=== PATIENT | female | born 1965 | race Caucasian/White ===

== ENCOUNTER 2021-10-17 07:59 | Outpatient (CLI) | payer BC, SELFPAY ==
--- OUTSIDE RECORDS SUMMARY | 2021-09-28 10:36 | XMS_ITS | Continuity of Care Document ---
:1965 Author Allergies, Adverse Reactions, Alerts Allergen Type Severity Reaction Last Updated Verified Status No Known Drug Allergy Unknown December Yes Active Allergy 2020 Social History Smoking Status Status Start Date End Date Date of Observat ion Never smoked tobacco December 062020 (finding) 11:01am Observation Status Observation Response Date of Response History provided by Patient November 29, 2020 9: 44am Where do you live? Own home/apt November 29, 2020 9: 44am With whom do you live? Spouse November 29, 2020 9:44am If YES, describe Babysit grandchildren November 29, 2020 9:44am Additional Data Assigned Sex Female Problems Active Problems Medical Problem Onset Date Status Acquired hypothyroidism January 09, 2016 Active Papillary thyroid carcinoma January 09, 2016 Resolved Mixed hyperlipidemia Active History of abnormal cervical Pap July 09, 2014 Resolve d smear Fibromyalgia Active Diffuse cystic mastopathy Active Anemia Active Uterine fibroid Active History of endometrial biopsy Active Dry skin Active Scalp pruritus Active Encounter for screening laboratory Activ e testing for COVID-19 virus Menorrhagia Active History of thyroidectomy January 09, 2016 Resolved History of breast surgery Resolved Status post cervical polyp removal Activ e Status post laparoscopic Active hysterectomy Medications Medication Status Dose Units Route Directions Qty Days Start End Ins tructions Date Date Docusate Active 100 MG PO Twice A Day 100 November Sodium as needed , (Colace) 100 2020 Mg CAP 5:13pm Ibuprofen Active 600 MG PO Every 6 30 [place] Hours as 24, needed 2020 5:13pm Levothyroxine Active 112 MCG PO Daily 30 Sodium Metronidazole Active 500 MG PO Twice A Day 14 7 Septemb (Flagyl) 500 er Mg TAB 2020 11:32am Triamcinolone Active 1 KIRT TOP Twice A Day 15 Septemb Acetonide er (Triamcinolon Acetonide 2020 (Cream)) 0.1 9:49am % CRE Amoxicillin/C Discontin 1 TAB PO Every 12 14 7 May yehuda take with lavulanate ued Hours r , food Potassium 2018 12, (Amoxicillin 10:11am 2020 & Pot 2:46pm Clavulanate) 875 Mg/125 Mg TAB Cetirizine Discontin 10 MG PO Daily 100 Septem Hcl ued geno 2020 9:17am Diphtheria/Te Discontin 0.5 ML IM Once November tanus/Acell ued , Pertussis 2020 2020 (Adacel) 0.5 10:18am 10:20a Ml INJ m Ferrous Discontin 324 MG PO Daily November Gluconate ued 2020 5:14pm Levothyroxine Discontin 125 MCG PO Daily July t sasha one tab Sodium ued , daily 6 days 2018 12, of the week 9:06am 2020 and 04/08 tab 2:51pm day 7 Levothyroxine Discontin 125 MCG PO Daily July Sodium ued 2018 9:06am Liothyronine Discontin 5 MCG OR Daily JulyOctober 06 t ablets Sodium ued , , daily 2018 2020 9:06am 11:00a m Liothyronine Discontin 5 MCG OR Twice A Day 60 Jul il Sodium ued 2018 9:06am Medroxyproges Discontin 10 MG PO Daily October T sasha 1 tablet terone ued , PO QD-TID to Acetate 2020 2020 prevent heav y 1:27pm 2:50pm vaginal bleeding Oxycodone Hcl Discontin 5-10 MG PO Every November Septe m ued Hours as needed 2020, 5:14pm 2020 9:17am Zoster Discontin 50 MCG IM Once Vaccine ued r , er Recombinant 2018 10, Adj 4:38pm 2018 (Shingrix) 50 4:40pm Mcg/0.5 Ml INJ Zoster Discontin 50 MCG IM Once November Vaccine ued , , Recombinant 2018 2018 Adj 8:42am 8:43am (Shingrix) 50 Mcg/0.5 Ml INJ Immunizations Immunization Event Date Not Given Dose Computer Technologist Lot Vac cine Reason Number Number Informatio n Statement (VIS) Deta il Hepatitis A February 05 Adult 2011 Hepatitis A December 07 Adult 2012 Hepatitis B November 15 Adult 1999 Hepatitis B December 07 Adult 1999 Hepatitis B February 07 Adult 2011 Influenza February 052011 Shingrix December 02, GSK CONSUM 454S2 2018 Shingrix February 11, GLAXO SK 454S2 2018 Tdap February 05 (adolescent/adul 2009 t) Tdap November 16 SANOFI (adolescent/adul 2020 t) Typhoid February 052011 Advance Directives Advance Directive Response Recorded Date/Time Has patient completed a No December 18, 2020 11:01am Health Care Directive? Insurance Providers Guarantor Abimbola Christie Address [address] [facility] [address] Contact Info. Home Phone: Payer Policy Id Coverage Id Subscriber's Subscriber Id Effective E xpiration Name Date Date Medica2 [id number] Pratik [id number] Abimbola Mcmullen Plan of Treatment Future Tests Future scheduled test information is unavailable Pending Tests Pending diagnostic test information is unavailable Future Visits Future appointment information is unavailable Referrals to Other Providers Referral information is unavailable Future Procedures Procedure Name Scheduled Date APRIL Bilat Mammo Scrn APRIL Bilat Mammo Scrn Future Medications Future medication information is unavailable Patient Instructions Laparoscopic Hysterectomy (DC)
--- NOTE | 2021-10-17 08:15 | CRLHL7_ITS ---
For Patients: As a result of the Century Cures Act, medical imaging exams and procedure reports are released immediately into your electronic medical record. You may view this report before your referring provider. If you have questions, please contact your health care provider. BILATERAL MAMMOGRAM WITH COMPUTER-AIDED DETECTION TECHNIQUE: CC and MLO views were obtained. These mammographic images have been obtained using full-field digital technique. These mammographic images were interpreted with the benefit of computer-aided detection. COMPARISON FILM: 05/16/2020, 01/28/2018, 01/30/2017. FINDINGS: The breasts are heterogeneously dense, which may obscure small masses IMPRESSION: There is no radiographic evidence for malignancy. ASSESSMENT: BI-RADS Category 1: Negative RECOMMENDATION: Routine screening mammogram in 1 year. A lay language report of this examination will be provided to the patient. Devaughn Garcia M.D. Diagnostic Radiologist [email or web address] JUAN/Dictated by: Devaughn Garcia MD @ 10/17/2021 11:46:00 AM (Electronically Signed)
== END 2021-10-17 08:00 | disposition home or self-care (01) ==
LOC: MAMMO 08:03
PROVIDERS: Visit Provider Emergency Medicine
DX: Z12.31 Encounter for screening mammogram for malignant neoplasm of breast (principal); R92.2 Inconclusive mammogram
CPT/HCPCS: 77063; 77067

== ENCOUNTER 2022-11-06 14:52 | Outpatient (CLI) | payer BC, SELFPAY ==
--- NOTE | 2022-11-06 15:20 | CRLHL7_ITS ---
For Patients: As a result of the Century Cures Act, medical imaging exams and procedure reports are released immediately into your electronic medical record. You may view this report before your referring provider. If you have questions, please contact your health care provider. BILATERAL SCREENING MAMMOGRAM WITH COMPUTER-AIDED DETECTION AND TOMOSYNTHESIS TECHNIQUE: CC and MLO views were obtained. These mammographic images have been obtained using full-field digital technique. These mammographic images were interpreted with the benefit of computer-aided detection. Breast Tomosynthesis was used in this interpretation. COMPARISON FILM: 10/17/21, 05/16/20, 01/28/18. FINDINGS: The breasts are heterogeneously dense, which may obscure small masses IMPRESSION: There is no radiographic evidence for malignancy. ASSESSMENT: BI-RADS Category 2: Benign RECOMMENDATION: Routine screening mammogram in 1 year. A lay language report of this examination will be provided to the patient. Devaughn Garcia M.D. Diagnostic Radiologist [email or web address] ELEANOR/shayan Transcribed: 4:42 p.opal downey/Dictated by: Devaughn Garcia MD @ 11/07/2022 11:09:00 AM (Electronically Signed)
== END 2022-11-06 14:53 | disposition home or self-care (01) ==
LOC: MAMMO 14:53
PROVIDERS: Visit Provider Registered Nurse
DX: Z12.31 Encounter for screening mammogram for malignant neoplasm of breast (principal); R92.2 Inconclusive mammogram
CPT/HCPCS: 77063; 77067

== ENCOUNTER 2023-04-28 16:57 | Outpatient (CLI) | payer BC, SELFPAY ==
--- NOTE | 2023-04-28 17:30 | CRLHL7_ITS ---
For Patients: As a result of the Century Cures Act, medical imaging exams and procedure reports are released immediately into your electronic medical record. You may view this report before your referring provider. If you have questions, please contact your health care provider. Indication: Migraine headaches. Technique: Noncontrast sagittal T1, axial FLAIR, T2, diffusion weighted sequences are provided. No comparisons. Findings: The ventricles, sulci and gyri are normal size, shape and contour for age. The midline structures are centrally located with no evidence of shift. There are no suspicious intra or extra-axial fluid collections. No region of restricted diffusion. Expected flow voids in the cavernous carotids and basilar artery. Punctate foci of increased T2 signal in the subcortical white lateral posterior right frontal lobe are nonspecific. Cntd-he-iofdssvw mucosal thickening within the frontal sinuses, scattered ethmoid air cells. Moderate mucosal thickening in the right sphenoid sinus. Mild to moderate mucosal thickening in the floor of the maxillary sinuses. Impression: 1. No radiographic evidence of acute intracranial abnormalities. 2. Miniscule scattered supratentorial white matter change that is non-specific. Differential considerations include changes related to diabetes, hypertension, collagen vascular disease or migrainous headaches. 3. Poly sinusitis Dictated by Hubert Iyer MD @ 04/28/2023 7:08:42 PM Dictated by: Hubert Iyer MD @ 04/28/2023 19:08:49 (Electronically Signed)
== END 2023-04-28 16:58 | disposition home or self-care (01) ==
LOC: MRI 16:59
PROVIDERS: Visit Provider Physician Assistant Medical
DX: G43.909 Migraine, unspecified, not intractable, without status migrainosus
CPT/HCPCS: 70551

== ENCOUNTER 2023-06-16 21:59 | Outpatient (REF) | payer BC, SELFPAY ==
[2023-06-16 23:34] LABS: Hemoglobin A1C* 5.9 % (0-5.6)
[2023-06-16 23:49] LABS: Free T4 Free Thyroxine* 1.74 ng/dL (0.70-1.85)
[2023-06-17 00:03] LABS: Thyroid Stimulating Hormone* 0.116 uIU/mL (0.270-4.20)
== END 2023-06-16 22:00 | disposition home or self-care (01) ==
LOC: NPINS 21:59
PROVIDERS: Visit Provider Specialist
DX: E03.9 Hypothyroidism, unspecified (principal)
CPT/HCPCS: 83036; 84439; 84443

== ENCOUNTER 2024-01-14 07:43 | Outpatient (CLI) | payer BC, SELFPAY ==
--- OUTSIDE RECORDS SUMMARY | 2024-01-14 07:46 | XMS_ITS | Encounter Summary ---
Author Organization [employer] Address [address] [place] [address] Care Team Providers Care Metal Rivet Machine Operator Name Role Phone Nicolette Meyer DO Primary Care Provider Unav ailable Encounter Details Date Type Department Care Team (Latest Contact Info) Description 07/14/1996 Orders Only Chantelle, Blossom Social History Tobacco Use Types Packs/Day Years Used Date Smoking Tobacco: Never Assessed Sex and Gender Information Value Date Recorded Sex Assigned at Not on file Gender Identity Not on file Sexual Orientation Not on file documented as of this encounter Plan of Treatment Not on file documented as of this encounter Visit Diagnoses Not on filedocumented in this encounter Care Teams Metal Rivet Machine Operator Relationship Specialty Start Date End Date Nicolette Meyer DO PCP - General 03/05/17 documented as of this encounter
--- OUTSIDE RECORDS SUMMARY | 2024-01-14 07:46 | XMS_ITS | Encounter Summary ---
Author Organization [employer] Address [address] [place] [address] Care Team Providers Care Javascript Software Engineer Name Role Phone Nicolette Meyer DO Primary Care Provider Unav ailable Encounter Details Date Type Department Care Team (Latest Contact Info) Description 05/04/1996 Orders Only Angie Teixeira MD Social History Tobacco Use Types Packs/Day Years Used Date Smoking Tobacco: Never Assessed Sex and Gender Information Value Date Recorded Sex Assigned at Not on file Gender Identity Not on file Sexual Orientation Not on file documented as of this encounter Plan of Treatment Not on file documented as of this encounter Visit Diagnoses Not on filedocumented in this encounter Care Teams Javascript Software Engineer Relationship Specialty Start Date End Date Nicolette Meyer DO PCP - General 03/05/17 documented as of this encounter
--- OUTSIDE RECORDS SUMMARY | 2024-01-14 07:46 | XMS_ITS | Encounter Summary ---
Author Organization [employer] Address [address] [place] [address] Care Team Providers Care Genetic Physician Name Role Phone Nicolette Meyer DO Primary Care Provider Unav ailable Encounter Details Date Type Department Care Team (Latest Contact Info) Description 06/22/1996 Orders Only Angie Teixeira MD Social History [...] on filedocumented in this encounter Care Teams Genetic Physician Relationship Specialty Start Date End Date Nicolette Meyer DO PCP - General 03/05/17 documented as of this encounter
--- OUTSIDE RECORDS SUMMARY | 2024-01-14 07:46 | XMS_ITS | Encounter Summary ---
Author Organization [employer] Address [address] [place] [address] Care Team Providers Care Crystal Finisher Name Role Phone Nicolette Meyer DO Primary Care Provider Unav ailable Encounter Details Date Type Department Care Team (Latest Contact Info) Description 02/12/1996 Orders Only Angie Teixeira MD Social History [...] on filedocumented in this encounter Care Teams Crystal Finisher Relationship Specialty Start Date End Date Nicolette Meyer DO PCP - General 03/05/17 documented as of this encounter
--- OUTSIDE RECORDS SUMMARY | 2024-01-14 07:46 | XMS_ITS | Referral Summary ---
Author Organization [employer] Address [facility] [place] [address] Care Team Providers Care Junior Electrical Engineer Name Role Phone Unavailable Primary Care Provider Unavailabl e Allergies Active Allergy Reactions Criticality Noted Date Comments Dust Mites Itching 01/03/2016 No Known Drug Allergy 07/06/2003 Medications Medication Sig Dispensed Refills Start Date End Date Status cetirizine (ZYRTEC) 10 MG tablet Take 10 mg by mouth daily Active levothyroxine (SYNTHROID/LEVOTHROID) 125 MCG tabletIndications:Papil mary thyroid carcinoma (H),Postsurgical hypothyroidism Take 125 mcg X 6 days a week and 62.5 mcg X 1 day a week 31 tablet 6 04/01/2018 Active liothyronine (CYTOMEL) 5 MCG tabletIndications:Posts urgical hypothyroidism Take 2 tablets (10 mcg) by mouth daily 60 tablet 1 07/30/2018 Active Active Problems Problem Noted Date Diagnosed Date Papillary thyroid carcinoma 03/07/2016 Postsurgical hypothyroidism 03/07/2016 Multinodular goiter 07/10/2015 HYPERLIPIDEMIA LDL GOAL <160 02/04/2010 Mixed hyperlipidemia Resolved Problems Problem Noted Date Diagnosed Date Resolved Date ASCUS favor benign 07/10/2015 8 Overview: 07/10/15 ASCUS, Neg HPV. 3 yr co-test Endometrial cells present that correlate with LMP date 01/19/18 NIL, Neg HPV. Depressive disorder, not elsewhere classified 11/21/2012 Immunizations Name Administration Dates Next Due HEPA 12/22/2012,03/02/2012 HepB 03/02/2012,12/21/1999,11/16/1999 Influenza (IIV3) PF 03/02/2012 TD,PF 7+ (Tenivac) 06/22/1996 TDAP Vaccine (Adacel) 02/21/2010 Typhoid IM 03/02/2012 Social History Tobacco Use Types Packs/Day Years Used Date Smoking Tobacco: Never Smokeless Tobacco: Never Tobacco Cessation:Counseling Given: Yes Alcohol Use Standard Drinks/Week Comments Yes 0 (1 standard drink = 0.6 oz pur e alcohol) socially PHQ-2 Answer Date Recorded PHQ-2 Score 2 01/19/2018 Adolescent Education Answer Date Record ed Getting School Help Needed Not on file 01/05 Sex and Gender Information Value Date Recorded Sex Assigned at Not on file Gender Identity Not on file Sexual Orientation Not on file Last Filed Vital Signs Vital Sign Reading Time Taken Comments Blood Pressure 108/62 04/01/2018 3:24 PM DYE HOUSE HAND Pulse 72 04/01/2018 3:24 PM DYE HOUSE HAND Temperature 36.9 ??C (98.4 ??F) 04/01/2018 3:24 PM CS T Respiratory Rate 16 04/01/2018 3:24 PM DYE HOUSE HAND Oxygen Saturation 98% 04/01/2018 3:24 PM DYE HOUSE HAND Inhaled Oxygen Concentration - - Weight 72.1 kg (159 lb) 04/01/2018 3:24 PM DYE HOUSE HAND Height 157.5 cm (5' 2) 01/19/2018 3:17 PM CDT Body Mass Index 29.08 01/19/2018 3:17 PM CDT Plan of Treatment Not on file Advance Directives For more information, please contact: [phone] * Full Code (Latest Code Status on File) Date Activated Date Inactivated Comments 01/09/2016 12:27 PM 01/10/2016 3:39 PM
--- OUTSIDE RECORDS SUMMARY | 2024-01-14 07:46 | XMS_ITS | Encounter Summary ---
Author Organization [place] Address [facility] [place] [address] Care Team Providers Care Receptionist/Telephone Operator Name Role Phone Nicolette Meyer MD Primary Care Provider [phone] Nicolette Meyer MD Unavailable [phone] Adriano Garcia MD Unavailable Nicolette Cuba MD Unavailable [phone] Adriano Garcia MD Unavailable Nicolette Cuba MD Unavailable [phone] Encounter Details Date Type Department Care Team ([facility] st Contact Info) Description 03/12/2016 [facility] Medical Advice [address] [address] Joseline Rolle, ANALYTICAL SCIENTIST Social History Tobacco Use Types Packs/Day Years Used Date Smoking Tobacco: Never Smokeless Tobacco: Never Alcohol Use Standard Drinks/Week Comments Yes 0 (1 standard drink = 0.6 oz pur e alcohol) socially Sex and Gender Information Value Date Recorded Sex Assigned at Not on file Gender Identity Not on file Sexual Orientation Not on file documented as of this encounter Plan of Treatment Not on file documented as of this encounter Visit Diagnoses Not on filedocumented in this encounter Care Teams Receptionist/Telephone Operator Relationship Specialty Start Date End Date Nicolette Meyer MD PCP - General Family Practice 07/03/15 04/15/22 Nicolette Meyer MD [address] [address] PCP - Assigned PCP 03/01/18 06/09/18 Adriano Garcia MD PCP - Assigned PCP 04/13/17 02/28/18 Nicolette Meyer MD [address] [address] Assigned PCP 03/01/18 10/23/19 Adriano Garcia MD Assigned PCP 10/24/19 03/04/20 Nicolette Meyer MD [address] [address] Assigned PCP 03/05/20 01/20/21 documented as of this encounter
--- OUTSIDE RECORDS SUMMARY | 2024-01-14 07:46 | XMS_ITS | Encounter Summary ---
Author Organization [employer] Address [address] [place] [address] Care Team Providers Care Contact Center Representative Name Role Phone Nicolette Meyer DO Primary Care Provider Unav ailable Encounter Details Date Type Department Care Team (Latest Contact Info) Description 08/26/1995 Orders Only Jigar Dee Social History Tobacco Use Types Packs/Day Years Used Date Smoking Tobacco: Never Assessed Sex and Gender Information Value Date Recorded Sex Assigned at Not on file Gender Identity Not on file Sexual Orientation Not on file documented as of this encounter Plan of Treatment Not on file documented as of this encounter Visit Diagnoses Not on filedocumented in this encounter Care Teams Contact Center Representative Relationship Specialty Start Date End Date Nicolette Meyer DO PCP - General 03/05/17 documented as of this encounter
--- OUTSIDE RECORDS SUMMARY | 2024-01-14 07:46 | XMS_ITS | Encounter Summary ---
Author Organization [employer] Address [address] [place] [address] Care Team Providers Care Floral Department Specialist Name Role Phone Nicolette Meyer DO Primary Care Provider Unav ailable Encounter Details Date Type Department Care Team (Latest Contact Info) Description 12/21/1998 Orders Only Angie Teixeira MD Social History [...] on filedocumented in this encounter Care Teams Floral Department Specialist Relationship Specialty Start Date End Date Nicolette Meyer DO PCP - General 03/05/17 documented as of this encounter
--- OUTSIDE RECORDS SUMMARY | 2024-01-14 07:46 | XMS_ITS | Encounter Summary ---
Author Organization [facility] Address [address] [facility] [place] [address] Care Team Providers Care Mercury Cracking Tester Name Role Phone Nicolette Meyer DO Primary Care Provider Unav ailable Encounter Details Date Type Department Care Team (Late st Contact Info) Description 10/17/2014 Correspondence [facility] [address] [place] [address] Juliane Nicole, DETASSELING CREW SUPERVISOR, APPROVER [address] [place] [address] DME EQUIPMENT PROOF OF DELIVERY Social History Tobacco Use Types Packs/Day Years Used Date Smoking Tobacco: Never Smokeless Tobacco: Never Alcohol Use Standard Drinks/Week Comments Yes 3.3 (1 standard drink = 0.6 oz p ure alcohol) Sex and Gender Information Value Date Recorded Sex Assigned at Not on file Gender Identity Not on file Sexual Orientation Not on file documented as of this encounter Plan of Treatment Not on file documented as of this encounter Visit Diagnoses Not on filedocumented in this encounter Care Teams Mercury Cracking Tester Relationship Specialty Start Date End Date Nicolette Meyer DO PCP - General 03/05/17 documented as of this encounter
--- OUTSIDE RECORDS SUMMARY | 2024-01-14 07:46 | XMS_ITS | Encounter Summary ---
Author Organization [employer] Address [address] [place] [address] Care Team Providers Care Dining Chair Seat Cushion Trimmer Name Role Phone Nicolette Meyer DO Primary Care Provider Unav ailable Encounter Details Date Type Department Care Team (Late st Contact Info) Description 05/03/2014 Correspondence External to External, [place] [address] ANNUAL PHYSICAL AFFIDAVIT Social History Tobacco Use Types Packs/Day Years [...] on filedocumented in this encounter Care Teams Dining Chair Seat Cushion Trimmer Relationship Specialty Start Date End Date Nicolette Meyer DO PCP - General 03/05/17 documented as of this encounter
--- OUTSIDE RECORDS SUMMARY | 2024-01-14 07:46 | XMS_ITS | Encounter Summary ---
Author Organization [employer] Address [address] [place] [address] Care Team Providers Care Optical Instrument Repairer Name Role Phone Nicolette Meyer DO Primary Care Provider Unav ailable Encounter Details Date Type Department Care Team (Latest Contact Info) Description 06/05/1995 Orders Only Angie Teixeira MD Social History [...] on filedocumented in this encounter Care Teams Optical Instrument Repairer Relationship Specialty Start Date End Date Nicolette Meyer DO PCP - General 03/05/17 documented as of this encounter
--- OUTSIDE RECORDS SUMMARY | 2024-01-14 07:46 | XMS_ITS | Encounter Summary ---
Author Organization [employer] Address [address] [place] [address] Care Team Providers Care Concrete Buster Operator Name Role Phone Nicolette Meyer DO Primary Care Provider Unav ailable Encounter Details Date Type Department Care Team (Latest Contact Info) Description 01/31/1998 Orders Only Angie Teixeira MD Social History [...] on filedocumented in this encounter Care Teams Concrete Buster Operator Relationship Specialty Start Date End Date Nicolette Meyer DO PCP - General 03/05/17 documented as of this encounter
--- OUTSIDE RECORDS SUMMARY | 2024-01-14 07:46 | XMS_ITS | Clinical Summary ---
Author Organization [facility] Address [address] [place] [address]. [place] [address] Care Team Providers Care Federal Air Marshal Name Role Phone Unavailable Primary Care Provider [...] TDAP Vaccine (Adacel) 02/21/2010 Typhoid IM 03/02/2012 Family History Medical History Relation Comments Thyroid Cancer Daughter Family History Negative Father Diabetes Mother Heart Disease Mother heart valve repl acement Relation Status Comments Daughter Alive Father Alive Mother Alive Social History Tobacco Use Types Packs/Day Years [...] Comments Blood Pressure 108/62 04/01/2018 3:24 PM SCHEDULING COORDINATOR Pulse 72 04/01/2018 3:24 PM SCHEDULING COORDINATOR Temperature 36.9 ??C (98.4 ??F) 04/01/2018 3:24 PM CS T Respiratory Rate 16 04/01/2018 3:24 PM SCHEDULING COORDINATOR Oxygen Saturation 98% 04/01/2018 3:24 PM SCHEDULING COORDINATOR Inhaled Oxygen Concentration - - Weight 72.1 kg (159 lb) 04/01/2018 3:24 PM SCHEDULING COORDINATOR Height 157.5 cm (5' 2) 01/19/2018 3:17 PM CDT Body Mass Index 29.08 01/19/2018 3:17 PM CDT Plan of Treatment Not on file Advance Directives For more information, please contact: [phone] * Full Code (Latest Code Status on File) Date Activated Date Inactivated Comments 01/09/2016 12:27 PM 01/10/2016 3:39 PM
--- OUTSIDE RECORDS SUMMARY | 2024-01-14 07:46 | XMS_ITS | Encounter Summary ---
Author Organization [employer] Address [address] [place] [address] Care Team Providers Care French Weaver Name Role Phone Nicolette Meyer DO Primary Care Provider Unav ailable Encounter Details Date Type Department Care Team (Latest Contact Info) Description 02/25/1997 Orders Only Jigar Dee Social History Tobacco [...] on filedocumented in this encounter Care Teams French Weaver Relationship Specialty Start Date End Date Nicolette Meyer DO PCP - General 03/05/17 documented as of this encounter
--- OUTSIDE RECORDS SUMMARY | 2024-01-14 07:46 | XMS_ITS | Encounter Summary ---
Author Organization [facility] Address [address] [place] [address]. [place] [address] Care Team Providers Care Director Of Events Name Role Phone Timothy English MD Primary Care Provider [phone] Nicolette Meyer MD Primary Care Provider [phone] Nicolette Meyer MD Unavailable [phone] Adriano Garcia MD Unavailable Nicolette Cuba MD Unavailable [phone] Adriano Garcia MD Unavailable Nicolette Cuba MD Unavailable [phone] Encounter Details Date Type Department Care Team (Late st Contact Info) Description 03/09/2012 [facility] [address] [address] [facility] Social History Tobacco Use Types Packs/Day Years Used Date Smoking Tobacco: Never Smokeless Tobacco: Never Alcohol Use Standard Drinks/Week Comments Yes 10 (1 standard drink = 0.6 oz pu re alcohol) socially Sex and Gender Information Value Date Recorded Sex Assigned at Not on file Gender Identity Not on file Sexual Orientation Not on file documented as of this encounter Plan of Treatment Not on file documented as of this encounter Visit Diagnoses Not on filedocumented in this encounter Care Teams Director Of Events Relationship Specialty [place] [address] [place], [place] [id number] PCP - General 07/06/03 07/02/15 [place] [address] [place] [address] PCP - General Family Practice 07/03/15 04/15/22 Nicolette Meyer MD [address] [address] PCP - Assigned PCP 03/01/18 06/09/18 Adriano Garcia MD PCP - Assigned PCP 04/13/17 02/28/18 Nicolette Meyer MD [address] [address] Assigned PCP 03/01/18 10/23/19 Adriano Garcia MD Assigned PCP 10/24/19 03/04/20 Nicolette Meyer MD [address] [address] Assigned PCP 03/05/20 01/20/21 documented as of this encounter
--- OUTSIDE RECORDS SUMMARY | 2024-01-14 07:46 | XMS_ITS | Encounter Summary ---
Author Organization [facility] Address [address] [place] [address]. [place] [address] Care Team Providers Care Tool Filer Name Role Phone Nicolette Meyer MD Primary Care Provider [phone] Nicolette Meyer MD Unavailable [phone] Adriano Garcia MD Unavailable Nicolette Cuba MD Unavailable [phone] Adriano Garcia MD Unavailable Nicolette Cuba MD Unavailable [phone] Encounter Details Date Type Department Care Team (Late st Contact Info) Description 10/29/2017 [facility] Scheduling [address] [place] [phone] Shaneka Rodgers Social History Tobacco Use Types Packs/Day Years [...] on filedocumented in this encounter Care Teams Tool Filer Relationship Specialty Start Date End Date Nicolette Meyer MD PCP - General Family Practice 07/03/15 04/15/22 Nicolette Meyer MD [address] [address] PCP - Assigned PCP 03/01/18 06/09/18 Adriano Garcia MD PCP - Assigned PCP 04/13/17 02/28/18 Nicolette Meyer MD [address] [address] Assigned PCP 03/01/18 10/23/19 Adriano Garcia MD Assigned PCP 10/24/19 03/04/20 Nicolette Meyer MD [address] [address] Assigned PCP 03/05/20 01/20/21 documented as of this encounter
--- OUTSIDE RECORDS SUMMARY | 2024-01-14 07:46 | XMS_ITS | Encounter Summary ---
Author Organization [facility] Address [address] [place] [address] Care Team Providers Care Movie Operator Name Role Phone Nicolette Meyer DO Primary Care Provider Unav ailable Encounter Details Date Type Department Care Team (Latest Contact Info) Description 07/12/1996 Orders Only Chantelle, Blossom Social History Tobacco [...] on filedocumented in this encounter Care Teams Movie Operator Relationship Specialty Start Date End Date Nicolette Meyer DO PCP - General 03/05/17 documented as of this encounter
--- OUTSIDE RECORDS SUMMARY | 2024-01-14 07:46 | XMS_ITS | Clinical Summary ---
Author Organization [facility] Address [address] [place] [address] Care Team Providers Care Statement Processor Name Role Phone Nicolette Meyer DO Primary Care Provider Unav ailable Source Comments You are receiving this document as you are listed as the primary care provider,follow-up provider, or the patient has been referred to you for consultation.This is in compliance with the Medicare and[facility] EHR Incentive Program,which states Providers who transition their patient to another setting of careor provider of care or refers their patient to another provider of care shouldprovide summary care record for each transition of care or referral. [facility] Allergies No known active allergies Medications Medication Sig Dispensed Refills Start Date End Date Status cetirizine (ZYRTEC) 10 MG tablet Take 10 mg by mouth. Active ferrous sulfate 325 (65 FE) MG tablet Take 65 mg by mouth. Active levothyroxine (SYNTHROID) 112 MCG tablet Take 1 tab X 6 days a week and 0.5 tab X 1 day a week 12/04/2016 Active liothyronine (CYTOMEL) 5 MCG tablet Take 10 mcg by mouth. 10/28/2016 Active MAGNESIUM OR Take by mouth. Active [place]-3 300 MG CAPS Take 1 g by mouth. 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 Fibromyalgia 04/08/2014 Thyroid goiter 04/08/2014 Multiple thyroid nodules 04/08/2014 HLD (hyperlipidemia) 02/04/2010 Immunizations Name Administration Dates Next Due HepB Adult (Engerix-B, 20+ yrs, 3 dose series) 0 12/21/1999,11/16/1999 Td 06/22/1996 Tdap 02/21/2010 Family History Medical History Relation Name Comments Diabetes, Type II Mother Depression Sister 2 Migraines Sister 3 Relation Name Status Comments Father Alive Mother Alive Brother Alive x 6 Daughter 1 Alive Daughter 2 Alive Other Alive - Jose Sister 1 Alive x 5 Sister 2 Sister 3 Son Alive Social History Tobacco Use Types Packs/Day [...] Sign Reading Time Taken Comments Blood Pressure 130/81 03/05/2017 9:36 AM ACTING MANAGER Pulse 61 03/05/2017 9:36 AM ACTING MANAGER Temperature 37 ??C (98.6 ??F) 03/05/2017 9:36 AM ACTING MANAGER Respiratory Rate 18 03/05/2017 9:36 AM ACTING MANAGER Oxygen Saturation 100% 03/05/2017 9:36 AM ACTING MANAGER Inhaled Oxygen Concentration - - Weight 71.7 kg (158 lb) 03/05/2017 9:36 AM ACTING MANAGER Height 157.5 cm (5' 2) 03/05/2017 9:36 AM ACTING MANAGER Body Mass Index 28.9 03/05/2017 9:36 AM ACTING MANAGER Plan of Treatment Health Maintenance Due Date Last Done Comments Hep C Screening (Preventive Services) 1965 HIV Screening (Preventive Services) 1981 HepB (3) 05/18/2000 12/21/1999, 11/16/1999 Adult Preventive Visit 04/08/2015 5, 12/21/1998, 08/25/1997, Additional history exists Zoster/Shingles (1 of 2) 08/28/2015 Colonoscopy 02/03/2016 02/02/2016 Mammogram 01/13/2018 01/13/2017, 1012/2012, 07/07/1996 Cervical Cancer Screening 07/09/20182015, 12/22/2012, 12/21/1998 Cholesterol 04/08/2019 04/08/2014, 08/25/1997 DTaP/Tdap/Td (2 - Tdap) 02/22/2020 02/21/2010, 06/22 COVID-19 Vaccine (2023- season) 2023 Influenza (#1) 2023 HepA Aged Out No longer eligi ble based on patient's age to complete this topic Hib Aged Out No longer eligi ble based on patient's age to complete this topic IPV (Polio) Aged Out No longer eligi ble based on patient's age to complete this topic Infant RSV Aged Out No longer eligi ble based on patient's age to complete this topic MCV4 Aged Out No longer eligi ble based on patient's age to complete this topic Pneumococcal Aged Out No longer eligi ble based on patient's age to complete this topic Procedures Procedure Name Priority Date/Time Associated Diagnosis Comments MM MAMMOGRAM SCREENING BILAT W CAD Routine 01/13/2017 3:42 PM CDT Visit for screening mammogram LIPID PANEL & DIRECT LDL (IF NEEDED) Routine 04/08/2014 8:54 AM ACTING MANAGER Screening for lipoid disorders from Last 3 Months or Most Recently Relevant to Health Maintenance Results * (ABNORMAL) MM Mammogram Screening Bilat W CAD (01/13/2017 3:42 PM CDT) Anatomical Region Laterality Modality Breast Bilateral Mammography Impressions 01/15/2017 2:19 PM CDT : ACR BI-RADS Category 0: Need Additional Imaging Evaluation RECOMMENDATION: Additional Mammographic Images and Ultrasound of the right breast. The results and recommendations of this examination will be communicated to the patient and the imaging center will attempt to schedule any recommended follow up with the patient. Narrative 01/15/2017 2:19 PM CDT MM MAMMOGRAM SCREENING BILAT W CAD performed on 01/13/17 Compared to: 07/12/2015 Foreign Image(S) Mammogram, 04/28/2014 Foreign Image(S) Mammogram, and 01/13/2013 Foreign Image(S) Mammogram FINDINGS: Bilateral screening mammogram was performed with the assistance of Computer-Aided Detection. The breasts are heterogeneously dense, which may obscure small masses. There is architectural distortion in the right breast on the CC view in the retroareolar plane at posterior depth. The remainder of the breast tissue is unremarkable. Tammi Richards APRN, CNP RAD APRIL * (ABNORMAL) LIPID PANEL AND DIRECT LDL(IF NEEDED) (04/08/2014 8:54 AM ACTING MANAGER) Hours Fasting 12 hours [facility] Cholesterol 123 0 - 199 mg/dl [facility] Triglyceride 82 0 - 149 mg/dl [facility] HDL 36(L) >40 mg/dl [facility] LDL, Calc. 71 0 - 129 mg/dl [facility] Non HDL Chol, Calc 87 mg/dl [facility] 04/08/2014 8:54 AM ACTING MANAGER 04/08/2014 9:04 AM ACTING MANAGER Narrative [facility] - 04/08/2014 5:02 PM ACTING MANAGER Performed at [facility], [address] [place] [id number] Juliane Nicole APRN, CNP LAB_[facility] [phone] from Last 3 Months or Most Recently Relevant to Health Maintenance Advance Directives * Full Code (Latest Code Status on File) Date Activated Date Inactivated Comments 03/05/2017 11:26 AM 03/05/2017 2:24 PM Care Teams Statement Processor Relationship Specialty Start Date End Date Nicolette Meyer DO PCP - General 03/05/17
== END 2024-01-14 07:44 | disposition home or self-care (01) ==
LOC: RAD 07:44
PROVIDERS: PCP Physician Assistant Medical; Visit Provider Physician Assistant Medical
DX: R01.1 Cardiac murmur, unspecified (principal)
CPT/HCPCS: 93306

== ENCOUNTER 2024-02-27 13:21 | Outpatient (CLI) | payer BC, SELFPAY ==
--- OUTSIDE RECORDS SUMMARY | 2024-02-27 13:24 | XMS_ITS | Clinical Summary ---
Author Organization [facility] Address [address] [place] [address] Care Team Providers Care Software Support Specialist Name Role Phone Nicolette Meyer DO Primary Care Provider Unav ailable Source Comments You are receiving this document as you are listed as the primary care provider,follow-up provider, or the patient has been referred to you for consultation.This is in compliance with the Medicare and[facility] Hospital[facility] EHR Incentive Program,which states Providers who transition their patient to another setting of careor provider of care or refers their patient to another provider of care shouldprovide summary care record for each transition of care or referral. [facility] Allergies No known active allergies Medications Medication [...] Active MAGNESIUM OR Take by mouth. Active [place]-3 300 MG CAPS Take 1 g by [...] Comments Blood Pressure 130/81 03/05/2017 9:36 AM CERTIFIED SCRUB TECH Pulse 61 03/05/2017 9:36 AM CERTIFIED SCRUB TECH Temperature 37 C (98.6 F) 03/05/2017 9:36 AM CERTIFIED SCRUB TECH Respiratory Rate 18 03/05/2017 9:36 AM CERTIFIED SCRUB TECH Oxygen Saturation 100% 03/05/2017 9:36 AM CERTIFIED SCRUB TECH Inhaled Oxygen Concentration - - Weight 71.7 kg (158 lb) 03/05/2017 9:36 AM CERTIFIED SCRUB TECH Height 157.5 cm (5' 2) 03/05/2017 9:36 AM CERTIFIED SCRUB TECH Body Mass Index 28.9 03/05/2017 9:36 AM CERTIFIED SCRUB TECH Plan of Treatment Health Maintenance Due Date Last Done Comments Hep C Screening (Preventive Services) 1965 HIV Screening (Preventive Services) 1981 HepB (3) 05/18/2000 12/21/1999, 11/16/1999 Adult Preventive Visit 04/08/2015 5, 12/21/1998, 08/25/1997, Additional history exists Zoster/Shingles (1 of 2) 08/28/2015 Colonoscopy 02/03/2016 02/02/2016 Mammogram 01/13/2018 01/13/2017, 10/0 12/2012, 07/07/1996 Cervical Cancer Screening 07/09/20182015, 12/22/2012, 12/21/1998 Cholesterol 04/08/2019 04/08/2014, 08/25/1997 DTaP/Tdap/Td (2 - Tdap) 02/22/2020 02/21/2010, 06/22 COVID-19 Vaccine (1 - 2023- season) 2023 Influenza (#1) 2023 HepA Aged Out No longer eligi ble based on patient's age to complete this topic Hib Aged Out No longer eligi ble based on patient's age to complete this topic IPV (Polio) Aged Out No longer eligi ble based on patient's age to complete this topic RSV Aged Out No longer eligi ble [...] LDL (IF NEEDED) Routine 04/08/2014 8:54 AM CERTIFIED SCRUB TECH Screening for lipoid disorders from Last 3 [...] breast tissue is unremarkable. Tammi Richards APRN, JOCELYN RAD APRIL * (ABNORMAL) LIPID PANEL AND DIRECT LDL(IF NEEDED) (04/08/2014 8:54 AM CERTIFIED SCRUB TECH) Hours Fasting 12 hours [facility] Cholesterol 123 0 - 199 mg/dl [facility] Triglyceride 82 0 - 149 mg/dl [facility] HDL 36(L) >40 mg/dl [facility] LDL, Calc. 71 0 - 129 mg/dl [facility] Non HDL Chol, Calc 87 mg/dl [facility] 04/08/2014 8:54 AM CERTIFIED SCRUB TECH 04/08/2014 9:04 AM CERTIFIED SCRUB TECH Narrative [facility] - 04/08/2014 5:02 PM CERTIFIED SCRUB TECH [facility], [address] [place] [address] Juliane Nicole APRN, CNP LAB_1 [facility] [phone] from Last 3 Months or Most Recently Relevant to Health Maintenance Advance Directives * Full Code (Latest Code Status on File) Date Activated Date Inactivated Comments 03/05/2017 11:26 AM 03/05/2017 2:24 PM Care Teams Software Support Specialist Relationship Specialty Start Date End Date Nicolette Meyer DO PCP - General 03/05/17
--- OUTSIDE RECORDS SUMMARY | 2024-02-27 13:24 | XMS_ITS | Encounter Summary ---
Author Organization [facility] [employer] [facility] Address [address] [place] [address] Care Team Providers Care Contact Center Director Name Role Phone Nicolette Meyer DO Primary Care Provider Unav ailable Encounter Details Date Type Department Care Team (Late st Contact Info) Description 05/03/2014 Correspondence External to External, [place] [address] ANNUAL PHYSICAL AFFIDAVIT Social History Tobacco Use [...] in this encounter Care Teams Contact Center Director Relationship Specialty Start Date End Date Nicolette Meyer DO PCP - General 03/05/17 documented as of this encounter
--- OUTSIDE RECORDS SUMMARY | 2024-02-27 13:24 | XMS_ITS | Encounter Summary ---
Author Organization [facility] Address [address] [place] [address] Care Team Providers Care Leasing Professional Name Role Phone Nicolette Meyer DO Primary Care Provider Unav ailable Encounter Details Date Type Department Care Team (Late st Contact Info) Description 10/17/2014 Correspondence [facility] [address] [place] [address] Juliane Nicole, SECURITY SYSTEMS ENGINEER, BRAKE LINING CURER [address] [place] [address] DME EQUIPMENT PROOF OF DELIVERY [...] on filedocumented in this encounter Care Teams Leasing Professional Relationship Specialty Start Date End Date Nicolette Meyer DO PCP - General 03/05/17 documented as of this encounter
--- OUTSIDE RECORDS SUMMARY | 2024-02-27 13:25 | XMS_ITS | Encounter Summary ---
Author Organization [facility] Address [address] [place] [address] Care Team Providers Care Social Services Coordinator Name Role Phone Nicolette Meyer DO Primary [...] on filedocumented in this encounter Care Teams Social Services Coordinator Relationship Specialty Start Date End Date Nicolette Meyer DO PCP - General 03/05/17 documented as of this encounter
--- OUTSIDE RECORDS SUMMARY | 2024-02-27 13:25 | XMS_ITS | Encounter Summary ---
Author Organization [facility] Address [address] [place] [address] Care Team Providers Care Mophead Sewer Name Role Phone Nicolette Meyer DO Primary [...] on filedocumented in this encounter Care Teams Mophead Sewer Relationship Specialty Start Date End Date Nicolette Meyer DO PCP - General 03/05/17 documented as of this encounter
--- OUTSIDE RECORDS SUMMARY | 2024-02-27 13:25 | XMS_ITS | Referral Summary ---
Author Organization [facility] Address [address] [place] [address]. [place] [address] Care Team Providers Care Wall And Floor Tiler Name Role Phone Unavailable Primary Care Provider Unavailabl e Allergies Active Allergy Reactions Criticality Noted Date Comments Dust Mites Itching 01/03/2016 No Known Drug Allergy 07/06/2003 Medications cetirizine (ZYRTEC) 10 MG tablet Take 10 mg by mouth daily Active levothyroxine (SYNTHROID/LEVOTHRO ID) 125 MCG tabletIndications:P apillary thyroid carcinoma (H),Postsurgical hypothyroidism Take 125 mcg X 6 days a week and 62.5 mcg X 1 day a week 31 tablet 6 8 Active liothyronine (CYTOMEL) 5 MCG tabletIndications:P ostsurgical hypothyroidism Take 2 tablets (10 mcg) by mouth daily 60 tablet 1 9 Active Active Problems Problem Noted Date Diagnosed Date Papillary thyroid carcinoma 03/07/2016 Postsurgical hypothyroidism 03/07/2016 Multinodular goiter 07/10/2015 HYPERLIPIDEMIA LDL GOAL <160 02/04/2010 Mixed hyperlipidemia Resolved Problems Problem Noted Date Diagnosed Date Resolved Date ASCUS favor benign 07/10/2015 8 Overview (01/28/2018): 07/10/15 ASCUS, Neg HPV. 3 yr co-test [...] School Help Needed Not on file 01/05 Comments No Sex and Gender Information Value Date Recorded Sex Assigned at Not on file Legal Sex Female 3:22 AM FUNERAL ARRANGER Gender Identity Not on file Sexual Orientation Not on file Last Filed Vital Signs Vital Sign Reading Time Taken Comments Blood Pressure 108/62 04/01/2018 3:24 PM FUNERAL ARRANGER Pulse 72 04/01/2018 3:24 PM FUNERAL ARRANGER Temperature 36.9 C (98.4 F) 04/01/2018 3:24 PM FUNERAL ARRANGER Respiratory Rate 16 04/01/2018 3:24 PM FUNERAL ARRANGER Oxygen Saturation 98% 04/01/2018 3:24 PM FUNERAL ARRANGER Inhaled Oxygen Concentration - - Weight 72.1 kg (159 lb) 04/01/2018 3:24 PM FUNERAL ARRANGER Height 157.5 cm (5' 2) 01/19/2018 3:17 PM CDT Body Mass Index 29.08 01/19/2018 3:17 PM CDT Plan of Treatment Not on file Advance Directives For more information, please contact: [phone] * Full Code (Latest Code Status on File) Date Activated Date Inactivated Comments 01/09/2016 12:27 PM 01/10/2016 3:39 PM
--- OUTSIDE RECORDS SUMMARY | 2024-02-27 13:25 | XMS_ITS | Encounter Summary ---
Author Organization [facility] Address [address] [place] [address]. [place] [address] Care Team Providers Care Office Service Coordinator Name Role Phone Nicolette Meyer MD Primary Care Provider [phone] Nicolette Meyer MD Unavailable [phone] Adriano Garcia MD Unavailable Nicolette Cuba MD Unavailable [phone] Adriano Garcia MD Unavailable Nicolette Cuba MD Unavailable [phone] Encounter Details Date Type Department Care Team (Late st Contact Info) Description 03/12/2016 [facility] [place] [address] [address] Joseline Rolle, FILLER SHAKER Social History Tobacco Use Types Packs/Day Years Used Date Smoking Tobacco: Never Smokeless Tobacco: Never Alcohol Use Standard Drinks/Week Comments Yes 0 (1 standard drink = 0.6 oz pur e alcohol) socially Comments No Sex and Gender Information Value Date Recorded Sex Assigned at Not on file Legal Sex Female 3:22 AM EDGE INKER UPPERS Gender Identity Not on file Sexual Orientation Not on file documented as of this encounter Plan of Treatment Not on file documented as of this encounter Visit Diagnoses Not on filedocumented in this encounter Care Teams Office Service Coordinator Relationship Specialty Start Date End Date Nicolette Meyer MD PCP - General Family Practice 07/03/15 04/15/22 Nicolette Meyer MD [address] [address] PCP - Assigned PCP 03/01/18 06/09/18 Adriano Garcia MD PCP - Assigned PCP 04/13/17 02/28/18 Nicolette Meyer MD [address] [address] Assigned PCP 03/01/18 10/23/19 Adriano Garcia MD Assigned PCP 10/24/19 03/04/20 Nicolette Meyer MD [address] [address] Assigned PCP 03/05/20 01/20/21 documented as of this encounter
--- OUTSIDE RECORDS SUMMARY | 2024-02-27 13:25 | XMS_ITS | Encounter Summary ---
Author Organization [facility] Address [address] [place] [address] Care Team Providers Care Leasing Property Manager Name Role Phone Nicolette Meyer DO Primary [...] filedocumented in this encounter Care Teams Leasing Property Manager Relationship Specialty Start Date End Date Nicolette Meyer DO PCP - General 03/05/17 documented as of this encounter
--- OUTSIDE RECORDS SUMMARY | 2024-02-27 13:25 | XMS_ITS | Encounter Summary ---
Author Organization [facility] Address [address] [place] [address]. [place] [address] Care Team Providers Care Audio Production Instructor Name Role Phone Timothy English MD Primary Care Provider [phone] Nicolette Meyer MD Primary Care Provider [phone] Nicolette Meyer MD Unavailable [phone] Adriano Garcia MD Unavailable Nicolette Cuba MD Unavailable [phone] Adriano Garcia MD Unavailable Nicolette Cuba MD Unavailable [phone] Encounter Details Date Type Department Care Team (Late st Contact Info) Description 03/09/2012 [facility] [place] [facility] [address] [address] [facility] Social History Tobacco Use Types Packs/Day Years Used Date Smoking Tobacco: Never Smokeless Tobacco: Never Alcohol Use Standard Drinks/Week Comments Yes 10 (1 standard drink = 0.6 oz pu re alcohol) socially Comments No Sex and Gender Information Value Date Recorded Sex Assigned at Not on file Legal Sex Female 3:22 AM ELECTROPHYSIOLOGIST Gender Identity Not on file Sexual Orientation Not on file documented as of this encounter Plan of Treatment Not on file documented as of this encounter Visit Diagnoses Not on filedocumented in this encounter Care Teams Audio Production Instructor Relationship Specialty [place] [address] [place] [address] PCP - General 07/06/03 07/02/15 [place] [address] [place] [address] PCP - General Family Practice 07/03/15 04/15/22 Nicolette Meyer MD [address] [address] PCP - Assigned PCP 03/01/18 06/09/18 Adriano Garcia MD PCP - Assigned PCP 04/13/17 02/28/18 Nicolette Meyer MD [address] [address] Assigned PCP 03/01/18 10/23/19 Adriano Garcia MD Assigned PCP 10/24/19 03/04/20 Nicolette Meyer MD [address] [address] Assigned PCP 03/05/20 01/20/21 documented as of this encounter
--- OUTSIDE RECORDS SUMMARY | 2024-02-27 13:25 | XMS_ITS | Encounter Summary ---
Author Organization [facility] Address [address] [place] [address] Care Team Providers Care Tube Winder Hand Name Role Phone Nicolette Meyer DO Primary [...] on filedocumented in this encounter Care Teams Tube Winder Hand Relationship Specialty Start Date End Date Nicolette Meyer DO PCP - General 03/05/17 documented as of this encounter
--- OUTSIDE RECORDS SUMMARY | 2024-02-27 13:25 | XMS_ITS | Encounter Summary ---
Author Organization [facility] Address [address] [place] [address]. [place] [address] Care Team Providers Care Bulldozer Engineer Name Role Phone Nicolette Meyer MD Primary Care Provider [phone] Nicolette Meyer MD Unavailable [phone] Adriano Garcia MD Unavailable Nicolette Cuba MD Unavailable [phone] Adriano Garcia MD Unavailable Nicolette Cuba MD Unavailable [phone] Encounter Details Date Type Department Care Team (Late st Contact Info) Description 10/29/2017 [facility] Medical Advice [address] [id number] Shaneka Rodgers Social History Tobacco Use Types Packs/Day Years Used Date Smoking Tobacco: Never Smokeless Tobacco: Never Alcohol Use Standard Drinks/Week Comments Yes 0 (1 standard drink = 0.6 oz pur e alcohol) socially Comments No Sex and Gender Information Value Date Recorded Sex Assigned at Not on file Legal Sex Female 3:22 AM CLIENT SUPPORT ADMINISTRATOR Gender Identity Not on file Sexual Orientation Not on file documented as of this encounter Plan of Treatment Not on file documented as of this encounter Visit Diagnoses Not on filedocumented in this encounter Care Teams Bulldozer Engineer Relationship Specialty Start Date End Date Nicolette Meyer MD PCP - General Family Practice 07/03/15 04/15/22 Nicolette Meyer MD [address] [address] PCP - Assigned PCP 03/01/18 06/09/18 Adriano Garcia MD PCP - Assigned PCP 04/13/17 02/28/18 Nicolette Meyer MD [address] [address] Assigned PCP 03/01/18 10/23/19 Adriano Garcia MD Assigned PCP 10/24/19 03/04/20 Nicolette Meyer MD [address] [address] Assigned PCP 03/05/20 01/20/21 documented as of this encounter
--- OUTSIDE RECORDS SUMMARY | 2024-02-27 13:25 | XMS_ITS | Encounter Summary ---
Author Organization [facility] Address [address] [place] [address] Care Team Providers Care Business Banker Name Role Phone Nicolette Meyer DO Primary [...] on filedocumented in this encounter Care Teams Business Banker Relationship Specialty Start Date End Date Nicolette Meyer DO PCP - General 03/05/17 documented as of this encounter
--- OUTSIDE RECORDS SUMMARY | 2024-02-27 13:25 | XMS_ITS | Encounter Summary ---
Author Organization [facility] Address [address] [place] [address] Care Team Providers Care Lithographer Apprentice Name Role Phone Nicolette Meyer DO Primary [...] on filedocumented in this encounter Care Teams Lithographer Apprentice Relationship Specialty Start Date End Date Nicolette Meyer DO PCP - General 03/05/17 documented as of this encounter
--- OUTSIDE RECORDS SUMMARY | 2024-02-27 13:25 | XMS_ITS | Encounter Summary ---
Author Organization [facility] Address [address] [place] [address] Care Team Providers Care Cement Mason Maintenance Name Role Phone Nicolette Meyer DO Primary [...] on filedocumented in this encounter Care Teams Cement Mason Maintenance Relationship Specialty Start Date End Date Nicolette Meyer DO PCP - General 03/05/17 documented as of this encounter
--- OUTSIDE RECORDS SUMMARY | 2024-02-27 13:25 | XMS_ITS | Encounter Summary ---
Author Organization [facility] Address [address] [place] [address] Care Team Providers Care Fireman Name Role Phone Nicolette Meyer DO Primary [...] on filedocumented in this encounter Care Teams Fireman Relationship Specialty Start Date End Date Nicolette Meyer DO PCP - General 03/05/17 documented as of this encounter
--- OUTSIDE RECORDS SUMMARY | 2024-02-27 13:25 | XMS_ITS | Encounter Summary ---
Author Organization [facility] [email or web address] Address [address] [place] [address] Care Team Providers Care Data Operations Manager Name Role Phone Nicolette Meyer DO [...] on filedocumented in this encounter Care Teams Data Operations Manager Relationship Specialty Start Date End Date Nicolette Meyer DO PCP - General 03/05/17 documented as of this encounter
--- OUTSIDE RECORDS SUMMARY | 2024-02-27 13:25 | XMS_ITS | Clinical Summary ---
Author Organization [facility] Address [address] [place] [address]. [place] [address] Care Team Providers Care Signwriter Name Role Phone Unavailable Primary Care Provider [...] on file Legal Sex Female 3:22 AM CEMENT CRUSHER OPERATOR Gender Identity Not on file Sexual Orientation Not on file Last Filed Vital Signs Vital Sign Reading Time Taken Comments Blood Pressure 108/62 04/01/2018 3:24 PM CEMENT CRUSHER OPERATOR Pulse 72 04/01/2018 3:24 PM CEMENT CRUSHER OPERATOR Temperature 36.9 C (98.4 F) 04/01/2018 3:24 PM CEMENT CRUSHER OPERATOR Respiratory Rate 16 04/01/2018 3:24 PM CEMENT CRUSHER OPERATOR Oxygen Saturation 98% 04/01/2018 3:24 PM CEMENT CRUSHER OPERATOR Inhaled Oxygen Concentration - - Weight 72.1 kg (159 lb) 04/01/2018 3:24 PM CEMENT CRUSHER OPERATOR Height 157.5 cm (5' 2) 01/19/2018 3:17 PM CDT Body Mass Index 29.08 01/19/2018 3:17 PM CDT Plan of Treatment Not on file Advance Directives For more information, please contact: [phone] * Full Code (Latest Code Status on File) Date Activated Date Inactivated Comments 01/09/2016 12:27 PM 01/10/2016 3:39 PM
--- OUTSIDE RECORDS SUMMARY | 2024-02-27 13:25 | XMS_ITS | Encounter Summary ---
Author Organization [facility] Address [address] [place] [address] Care Team Providers Care Gin Operator Name Role Phone Nicolette Meyer DO [...] on filedocumented in this encounter Care Teams Gin Operator Relationship Specialty Start Date End Date Nicolette Meyer DO PCP - General 03/05/17 documented as of this encounter
--- NOTE | 2024-02-27 14:00 | CRLHL7_ITS ---
For Patients: As a result of the Century Cures Act, medical imaging exams and procedure reports are released immediately into your electronic medical record. You may view this report before your referring provider. If you have questions, please contact your health care provider. BILATERAL SCREENING MAMMOGRAM WITH COMPUTER-AIDED DETECTION AND TOMOSYNTHESIS TECHNIQUE: CC and MLO views were obtained. These mammographic images have been obtained using full-field digital technique. These mammographic images were interpreted with the benefit of computer-aided detection. Breast Tomosynthesis was used in this interpretation. COMPARISON FILM: 11/06/22, 10/17/21, 05/16/20. FINDINGS: There are scattered areas of fibroglandular density IMPRESSION: There is no radiographic evidence for malignancy. ASSESSMENT: BI-RADS Category 2: Benign RECOMMENDATION: Routine screening mammogram in 1 year. A lay language report of this examination will be provided to the patient. Devaughn Garcia M.D. Diagnostic Radiologist [email or web address] JUAN/Dictated by: Devaughn Garcia MD @ 03/01/2024 12:45:00 PM (Electronically Signed)
== END 2024-02-27 13:22 | disposition home or self-care (01) ==
LOC: MAMMO 13:22
PROVIDERS: PCP Physician Assistant Medical; Visit Provider Physician Assistant Medical
DX: Z12.31 Encounter for screening mammogram for malignant neoplasm of breast (principal)
CPT/HCPCS: 77063; 77067

== ENCOUNTER 2024-05-10 10:36 | Outpatient (CLI) | payer BC, SELFPAY | END 2024-05-10 10:37 | disposition home or self-care (01) | LOC: NFLDREF 05-12 01:31 | PROVIDERS: PCP Physician Assistant Medical; Referring Provider Physician Assistant Medical; Visit Provider Podiatrist | DX: B35.1 Tinea unguium (principal) | CPT/HCPCS: 84443; 84450; 84460 ==

== ENCOUNTER 2024-06-08 13:13 | Outpatient (CLI) | payer BC, SELFPAY | END 2024-06-08 13:14 | disposition home or self-care (01) | LOC: NFLDREF 06-09 03:22 | PROVIDERS: PCP Physician Assistant Medical; Referring Provider Physician Assistant Medical; Visit Provider Podiatrist | DX: Z79.899 Other long term (current) drug therapy (principal) | CPT/HCPCS: 84450; 84460 ==

== ENCOUNTER 2024-08-09 17:06 | Emergency (ER) | payer BC, SELFPAY ==
--- OUTSIDE RECORDS SUMMARY | 2024-08-09 17:10 | XMS_ITS | Encounter Summary ---
Author Organization [facility] Address [address] [place] [address] Care Team Providers Care Squeegeer And Former Name Role Phone Nicolette Meyer DO Primary Care Provider Unav ailable Encounter Details Date Type Department Care Team (Latest Contact Info) Description 06/05/1995 Orders Only Angie Teixeira MD Social History Tobacco Use Types Packs/Day Years Used Date Smoking Tobacco: Never Assessed Comments Unknown Sex and Gender Information Value Date Recorded Sex Assigned at Not on file Legal Sex Female 4:02 AM CDT Gender Identity Not on file Sexual Orientation Not on file documented as of this encounter Plan of Treatment Not on file documented as of this encounter Visit Diagnoses Not on filedocumented in this encounter Care Teams Squeegeer And Former Relationship Specialty Start Date End Date Nicolette Meyer DO PCP - General 03/05/17 documented as of this encounter
--- OUTSIDE RECORDS SUMMARY | 2024-08-09 17:10 | XMS_ITS | Encounter Summary ---
Author Organization [facility] Address [address] [place] [address]. [place] [address] Care Team Providers Care Glass Enamel Mixer Name Role Phone Nicolette Meyer MD Primary Care Provider [phone] Nicolette Meyer MD Unavailable [phone] Adriano Garcia MD Unavailable Nicolette Cuba MD Unavailable [phone] Adriano Garcia MD Unavailable Nicolette Cuba MD Unavailable [phone] Encounter Details Date Type Department Care Team (Late st Contact Info) Description 10/29/2017 [facility] Medical Advice [address] [phone] Shaneka Rodgers Social History Tobacco Use Types Packs/Day Years Used Date Smoking Tobacco: Never Smokeless Tobacco: Never Alcohol Use Standard Drinks/Week Comments Yes 0 (1 standard drink = 0.6 oz pur e alcohol) socially Comments No Sex and Gender Information Value Date Recorded Sex Assigned at Not on file Legal Sex Female 3:22 AM RED CAP Gender Identity Not on file Sexual Orientation Not on file documented as of this encounter Plan of Treatment Not on file documented as of this encounter Visit Diagnoses Not on filedocumented in this encounter Care Teams Glass Enamel Mixer Relationship Specialty Start Date End Date Nicolette Meyer MD PCP - General Family Practice 07/03/15 04/15/22 Nicolette Meyer MD [address] [address] PCP - Assigned PCP 03/01/18 06/09/18 Adriano Garcia MD PCP - Assigned PCP 04/13/17 02/28/18 Nicolette Meyer MD [address] [address] Assigned PCP 03/01/18 10/23/19 Adriano Garcia MD Assigned PCP 10/24/19 03/04/20 Nicolette Meyer MD [address] [address] Assigned PCP 03/05/20 01/20/21 documented as of this encounter
--- OUTSIDE RECORDS SUMMARY | 2024-08-09 17:10 | XMS_ITS | Encounter Summary ---
Author Organization [facility] Address [address] [place] [address] Care Team Providers Care Md Physician Dermatologist Name Role Phone Nicolette Meyer DO Primary [...] on filedocumented in this encounter Care Teams Md Physician Dermatologist Relationship Specialty Start Date End Date Nicolette Meyer DO PCP - General 03/05/17 documented as of this encounter
--- OUTSIDE RECORDS SUMMARY | 2024-08-09 17:10 | XMS_ITS | Encounter Summary ---
Author Organization [facility] Address [address] [place] [address]. [place] [address] Care Team Providers Care Imaging Analyst Name Role Phone Nicolette Meyer MD Primary Care Provider [phone] Nicolette Meyer MD Unavailable [phone] Adriano Garcia MD Unavailable Nicolette Cuba MD Unavailable [phone] Adriano Garcia MD Unavailable Nicolette Cuba MD Unavailable [phone] Encounter Details Date Type Department Care Team (Late st Contact Info) Description 03/12/2016 [facility] Advice [address] [phone] Joseline Rolle, GASKET FORMER Social History Tobacco Use Types Packs/Day Years Used Date Smoking Tobacco: Never Smokeless Tobacco: Never Alcohol Use Standard Drinks/Week Comments Yes 0 (1 standard drink = 0.6 oz pur e alcohol) socially Comments No Sex and Gender Information Value Date Recorded Sex Assigned at Not on file Legal Sex Female 3:22 AM DIVER PUMPER Gender Identity Not on file Sexual Orientation Not on file documented as of this encounter Plan of Treatment Not on file documented as of this encounter Visit Diagnoses Not on filedocumented in this encounter Care Teams Imaging Analyst Relationship Specialty Start Date End Date Nicolette Meyer MD PCP - General Family Practice 07/03/15 04/15/22 Nicolette Meyer MD [address] [address] PCP - Assigned PCP 03/01/18 06/09/18 Adriano Garcia MD PCP - Assigned PCP 04/13/17 02/28/18 Nicolette Meyer MD [address] [address] Assigned PCP 03/01/18 10/23/19 Adriano Garcia MD Assigned PCP 10/24/19 03/04/20 Nicolette Meyer MD [address] [address] Assigned PCP 03/05/20 01/20/21 documented as of this encounter
--- OUTSIDE RECORDS SUMMARY | 2024-08-09 17:10 | XMS_ITS | Encounter Summary ---
Author Organization [facility] [employer] [facility] Address [address] [place] [address] Care Team Providers Care Church Warden Name Role Phone Nicolette Meyer DO Primary [...] on filedocumented in this encounter Care Teams Church Warden Relationship Specialty Start Date End Date Nicolette Meyer DO PCP - General 03/05/17 documented as of this encounter
--- OUTSIDE RECORDS SUMMARY | 2024-08-09 17:10 | XMS_ITS | Encounter Summary ---
Author Organization [facility] Address [address] [place] [address] Care Team Providers Care Bankruptcy Judge Name Role Phone Nicolette Meyer DO Primary [...] on filedocumented in this encounter Care Teams Bankruptcy Judge Relationship Specialty Start Date End Date Nicolette Meyer DO PCP - General 03/05/17 documented as of this encounter
--- OUTSIDE RECORDS SUMMARY | 2024-08-09 17:10 | XMS_ITS | Clinical Summary ---
Author Organization [facility] Address [address] [place] [address]. [place] [address] Care Team Providers Care Printing Supplies Sales Representative Name Role Phone Unavailable Primary Care Provider [...] on file Legal Sex Female 3:22 AM [employer]ICE [employer] Gender Identity Not on file Sexual Orientation Not on file Last Filed Vital Signs Vital Sign Reading Time Taken Comments Blood Pressure 108/62 04/01/2018 3:24 PM [employer] Pulse 72 04/01/2018 3:24 PM [employer] Temperature 36.9 C (98.4 F) 04/01/2018 3:24 PM [employer] Respiratory Rate 16 04/01/2018 3:24 PM [employer] Oxygen Saturation 98% 04/01/2018 3:24 PM [employer] Inhaled Oxygen Concentration - - Weight 72.1 kg (159 lb) 04/01/2018 3:24 PM [employer] Height 157.5 cm (5' 2) 01/19/2018 3:17 PM CDT Body Mass Index 29.08 01/19/2018 3:17 PM CDT Plan of Treatment Not on file Advance Directives For more information, please contact: [phone] * Full Code (Latest Code Status on File) Date Activated Date Inactivated Comments 01/09/2016 12:27 PM 01/10/2016 3:39 PM
--- OUTSIDE RECORDS SUMMARY | 2024-08-09 17:10 | XMS_ITS | Encounter Summary ---
Author Organization [facility] Address [address] [place] [address] Care Team Providers Care Transmission Tester Name Role Phone Nicolette Meyer DO Primary Care Provider Unav ailable Encounter Details Date Type Department Care Team (Late st Contact Info) Description 10/17/2014 Correspondence [facility] [address] [place] [address] Juliane Nicole, GUIDE SETTER, MA[facility]GER [facility] [address] [place] [address] DME EQUIPMENT PROOF OF DELIVERY Social History Tobacco Use Types Packs/Day Years Used Date Smoking Tobacco: Never Smokeless Tobacco: Never Alcohol Use Standard Drinks/Week Comments Yes 3.3 (1 standard drink = 0.6 oz p ure alcohol) Comments No Sex and Gender Information Value Date Recorded Sex Assigned at Not on file Legal Sex Female 4:02 AM CDT Gender Identity Not on file Sexual Orientation Not on file 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
--- OUTSIDE RECORDS SUMMARY | 2024-08-09 17:10 | XMS_ITS | Encounter Summary ---
Author Organization [employer] Address [address] [place] [address] Care Team Providers Care Doll Wig Maker Name Role Phone Nicolette Meyer DO Primary [...] on filedocumented in this encounter Care Teams Doll Wig Maker Relationship Specialty Start Date End Date Nicolette Meyer DO PCP - General 03/05/17 documented as of this encounter
--- OUTSIDE RECORDS SUMMARY | 2024-08-09 17:10 | XMS_ITS | Encounter Summary ---
Author Organization [facility] [employer] [facility] Address [address] [place] [address] Care Team Providers Care Corporate Safety Coordinator Name Role Phone Nicolette Meyer DO [...] on filedocumented in this encounter Care Teams Corporate Safety Coordinator Relationship Specialty Start Date End Date Nicolette Meyer DO PCP - General 03/05/17 documented as of this encounter
--- OUTSIDE RECORDS SUMMARY | 2024-08-09 17:10 | XMS_ITS | Encounter Summary ---
Author Organization [facility] Address [address] [place] [address] Care Team Providers Care Cyber Security Analyst Name Role Phone Nicolette Meyer DO Primary [...] on filedocumented in this encounter Care Teams Cyber Security Analyst Relationship Specialty Start Date End Date Nicolette Meyer DO PCP - General 03/05/17 documented as of this encounter
--- OUTSIDE RECORDS SUMMARY | 2024-08-09 17:10 | XMS_ITS | Clinical Summary ---
Author Organization [facility] Address [address] [address] Care Team Providers Care Aircraft Charter Dispatcher Name Role Phone Nicolette Meyer DO Primary Care Provider Unav ailable Source Comments You are receiving this document as you are listed as the primary care provider,follow-up provider, or the patient has been referred to you for consultation.This is in compliance with the Medicare and[employer] Health[employer] EHR Incentive Program,which states Providers who transition their patient to another setting of careor provider of care or refers their patient to another provider of care shouldprovide summary care record for each transition of care or referral. [facility] Allergies No known active allergies Medications cetirizine (ZYRTEC) 10 MG tablet Take [...] Active MAGNESIUM OR Take by mouth. Active Trenton-3 300 MG CAPS Take 1 g by mouth. 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 Not on file Not on file Last Filed Vital Signs Vital Sign Reading Time Taken Comments Blood Pressure 130/81 03/05/2017 9:36 AM TEST OPERATOR Pulse 61 03/05/2017 9:36 AM TEST OPERATOR Temperature 37 C (98.6 F) 03/05/2017 9:36 AM TEST OPERATOR Respiratory Rate 18 03/05/2017 9:36 AM TEST OPERATOR Oxygen Saturation 100% 03/05/2017 9:36 AM TEST OPERATOR Inhaled Oxygen Concentration - - Weight 71.7 kg (158 lb) 03/05/2017 9:36 AM TEST OPERATOR Height 157.5 cm (5' 2) 03/05/2017 9:36 AM TEST OPERATOR Body Mass Index 28.9 03/05/2017 9:36 AM TEST OPERATOR Plan of Treatment Health Maintenance Due Date Last Done Comments Hep C Screening (Preventive Services) 1965 HIV Screening (Preventive Services) 1981 HepB Vaccine (3) 05/18/2000 12/21/1999, 11/16/1999 Adult Preventive Visit 04/08/2015 5, 12/21/1998, 08/25/1997, Additional history exists Pneumococcal Vaccine 50+ Yrs (1 of 1 - PCV) 08/28/2015 Zoster/Shingles Vaccine (1 of 2) 08/28/2015 Colonoscopy 02/03/2016 02/02/2016 Mammogram 01/13/2018 01/13/2017, 1012/2012, 07/07/1996 Cervical Cancer Screening 07/09/20182015, 12/22/2012, 12/21/1998 Cholesterol 04/08/2019 04/08/2014, 08/25/1997 DTaP/Tdap/Td Vaccine (2 - Tdap) 02/22/2020 02/21/2010, 06/22/1996 COVID-19 Vaccine ( season) 2023 Influenza Vaccine (Season Ended) 2024 HepA Vaccine Aged Out No longer eligi ble based on patient's age to complete this topic Hib Vaccine Aged Out No longer eligi ble based on patient's age to complete this topic IPV (Polio) Vaccine Aged Out No longe r eligible based on patient's age to complete this topic MCV4 Vaccine Aged Out No longer eligi ble based on patient's age to complete this topic Meningococcal B Vaccine Aged Out No l onger eligible based on patient's age to complete this topic Procedures Procedure Name Priority Date/Time Associated Diagnosis Comments MM MAMMOGRAM SCREENING BILAT W CAD Routine 01/13/2017 3:42 PM CDT Visit for screening mammogram LIPID PANEL & DIRECT LDL (IF NEEDED) Routine 04/08/2014 8:54 AM TEST OPERATOR Screening for lipoid disorders from Last 3 [...] unremarkable. Tammi Richards APRN, [facility] APRIL F inal Result * (ABNORMAL) LIPID PANEL AND DIRECT LDL(IF NEEDED) (04/08/2014 8:54 AM TEST OPERATOR) Hours Fasting 12 hours [facility] Cholesterol 123 0 - 199 mg/dl [facility] Triglyceride 82 0 - 149 mg/dl [facility] HDL 36(L) >40 mg/dl [facility] LDL, Calc. 71 0 - 129 mg/dl [facility] Non HDL Chol, Calc 87 mg/dl [facility] 04/08/2014 8:54 AM TEST OPERATOR 04/08/2014 9:04 AM TEST OPERATOR Narrative [facility] - 04/08/2014 5:02 PM TEST OPERATOR Performed at [facility], [address] [place] [address] [place] Juliane Nicole APRN, [facility] LAB_1 Final Result [facility] [phone] from Last 3 Months or Most Recently Relevant to Health Maintenance Insurance FULLY INSURED FULLY INSURED COMM FULLY INSURED DENTAL Advance Directives * Full Code (Latest Code Status on File) Date Activated Date Inactivated Comments 03/05/2017 11:26 AM 03/05/2017 2:24 PM Care Teams Aircraft Charter Dispatcher Relationship Specialty Start Date End Date Nicolette Meyer DO PCP - General 03/05/17
--- OUTSIDE RECORDS SUMMARY | 2024-08-09 17:10 | XMS_ITS | Encounter Summary ---
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
--- OUTSIDE RECORDS SUMMARY | 2024-08-09 17:10 | XMS_ITS | Encounter Summary ---
Author Organization [facility] Address [address] [place] [address]. [place] [address] Care Team Providers Care Skip Tracer Name Role Phone Timothy English MD Primary Care Provider [phone] Nicolette Meyer MD Primary Care Provider [phone] Nicolette Meyer MD Unavailable [phone] Adriano Garcia MD Unavailable Nicolette Cuba MD Unavailable [phone] Adriano Garcia MD Unavailable Nicolette Cuba MD Unavailable [phone] Encounter Details Date Type Department Care Team (Late st Contact Info) Description 03/09/2012 [facility] [address] [address] [facility] Social History Tobacco Use Types Packs/Day Years Used Date Smoking Tobacco: Never Smokeless Tobacco: Never Alcohol Use Standard Drinks/Week Comments Yes 10 (1 standard drink = 0.6 oz pu re alcohol) socially Comments No Sex and Gender Information Value Date Recorded Sex Assigned at Not on file Legal Sex Female 3:22 AM CEILING CLEANER Gender Identity Not on file Sexual Orientation Not on file documented as of this encounter Plan of Treatment Not on file documented as of this encounter Visit Diagnoses Not on filedocumented in this encounter Care Teams Skip Tracer Relationship Specialty [place] [address] [place] [address] PCP - General 07/06/03 07/02/15 [place] [address] [place] [address] PCP - General Family Practice 07/03/15 04/15/22 Nicolette Meyer MD [address] [address] PCP - Assigned PCP 03/01/18 06/09/18 Adriano Garcia MD PCP - Assigned PCP 04/13/17 02/28/18 Nicolette Meyer MD [address] [address] Assigned PCP 03/01/18 10/23/19 Adriano Garcia MD Assigned PCP 10/24/19 03/04/20 Nicolette Meyer MD [address] [address] Assigned PCP 03/05/20 01/20/21 documented as of this encounter
--- OUTSIDE RECORDS SUMMARY | 2024-08-09 17:10 | XMS_ITS | Encounter Summary ---
Author Organization [employer] Address [address] [place] [address] Care Team Providers Care Assignment Officer Name Role Phone Nicolette Meyer DO Primary [...] on filedocumented in this encounter Care Teams Assignment Officer Relationship Specialty Start Date End Date Nicolette Meyer DO PCP - General 03/05/17 documented as of this encounter
--- OUTSIDE RECORDS SUMMARY | 2024-08-09 17:10 | XMS_ITS | Encounter Summary ---
Author Organization [employer] Address [address] [place] [address] Care Team Providers Care Director Of Pupil Personnel Program Name Role Phone Nicolette Meyer DO Primary [...] in this encounter Care Teams Director Of Pupil Personnel Program Relationship Specialty Start Date End Date Nicolette Meyer DO PCP - General 03/05/17 documented as of this encounter
--- OUTSIDE RECORDS SUMMARY | 2024-08-09 17:10 | XMS_ITS | Encounter Summary ---
Author Organization [email or web address] Address [address] [place] [address] Care Team Providers Care Hat Forming Machine Feeder Name Role Phone Nicolette Meyer DO Primary [...] on filedocumented in this encounter Care Teams Hat Forming Machine Feeder Relationship Specialty Start Date End Date Nicolette Meyer DO PCP - General 03/05/17 documented as of this encounter
[2024-08-09 17:25] VITALS: BP 130/81; PULSE 74; RESP 18; TEMP 36.7; O2SAT 97; BMI 29.1
--- NOTE | 2024-08-09 18:05 | ED_ITS ---
HPI - Wound/Laceration General Time Seen by Provider: 18:05 Date Seen: 08/09/24 Chief Complaint: Laceration/Wound Stated Complaint: cut on head Time Seen by Provider: 08/09/24 18:00 Source: patient and RN notes reviewed Mode of arrival: ambulatory Limitations: no limitations History of Present Illness HPI narrative: This 58-year-old female coming to the ER with a scalp laceration. She was removing siding from should come was trying to remove a nail somewhat above her, the crowbar she was using ended up hitting her on top of the scalp. She bled a lot initially, is not on any blood thinners. She took some ibuprofen before coming for mild headache. No loss of consciousness, no visual changes. Tetanus up-to-date in 2020. Related Data Home Medications ?Medication ?Instructions ?Recorded ?Confirmed ibuprofen 600 mg tablet 600 mg PO PRN 11/13/21 06/11/24 levothyroxine 112 mcg tablet 112 mcg PO DAILY 11/13/21 08/09/24 terbinafine HCl 250 mg tablet 250 mg PO DAILY 08/09/24 08/09/24 Previous Rx's ?Medication ?Instructions ?Recorded lisinopril 10 mg tablet 10 mg PO QDAY #90 tabs 03/24/24 Allergies Allergy/AdvReac Type Severity Reaction Status Date / Time No Known Allergies Allergy Unknown Verified 08/09/24 17:24 Review of Systems Narrative: As per HPI. [facility] Medical History Excess ear wax ?H61.20 - Impacted cerumen, unspecified ear (ICD-10) Left shoulder pain ?M25.512 - Pain in left shoulder (ICD-10) Tinea pedis ?B35.3 - Tinea pedis (ICD-10) History of endometrial biopsy ?Z92.89 - Personal history of other medical treatment (ICD-10) History of abnormal cervical Papanicolaou smear (07/09/14) ?Z87.42 - Personal history of other diseases of the female genital tract (ICD-10) Surgical History Status post laparoscopic hysterectomy (11/28/20) ?Z90.710 - Acquired absence of both cervix and uterus (ICD-10) Status post cervical polypectomy (10/18/20) ?Z98.890 - Other specified postprocedural states (ICD-10) ?Z87.42 - Personal history of other diseases of the female genital tract (ICD-10) History of thyroidectomy (01/09/16) ?E89.0 - Postprocedural hypothyroidism (ICD-10) History of breast surgery ?Z98.890 - Other specified postprocedural states (ICD-10) Family History Mother Diabetes Family/Other Anxiety and depression Daughter Thyroid cancer Brother High blood pressure Diabetes Father High blood pressure Sister Diabetes Social History Narrative: Drinks alcohol 5-7 drinks/week. Does not work outside the home. Is training for a half marathon. Smoking Status: Never smoker How often do you have a drink containing alcohol: monthly or less AUDIT-C Alcohol total score: 1 Non-prescribed substance use: denies use Exam Const: Vital Signs, click to edit/add: Vital Signs - 24 hr 08/09/24 17:25 Temperature 98.1 F Pulse Rate [Pulse Oximeter] 74 Respiratory Rate 18 Blood Pressure [Ri ght Upper Arm] 130/81 Pulse Oximetry 97 Oxygen Delivery Me thod Room Air With this 58-year-old female is alert, interactive, no apparent distress. She has about a 2 cm laceration centered in the part of her anterior scalp. Slight oozing but no significant bleeding at this time. Wound edges are gaping about 2-3 mm. It is into the subcutaneous tissue but not through and through down to the galea or bone. Reviewed ollie versus stitches with patient. I do think stitches here might have better repair. She agrees with proceeding with this. Documenting provider has reviewed patient's vital signs: yes Course Vital Signs Vital signs: Initial Vital Signs Temperature 98.1 F 08/09/24 17:25 Temperature Source Temporal Artery Scan 08/09/24 17:25 Pulse Rate 74 08/09/24 17: Pulse Rhythm Regular 08/09/24 17: Respiratory Rate 18 08/09/24 17:25 Blood Pressure 130/81 08/09/24 17:25 Blood Pressure Mean 97 08/09/24 17:25 Blood Pressure Position Sitting 08/09/24 17:25 Pulse Oximetry 97 08/09/24 17:25 Oxygen Delivery Method Room Air 08/09/24 17:25 Vital Signs Temperature 98.1 F 08/09/24 17:25 Pulse Rate 74 08/09/24 17:25 Respiratory Rate 18 08/09/24 17:25 Blood Pressure 130/81 08/09/24 17:25 Pulse Oximetry 97 08/09/24 17:25 Oxygen Delivery Method Room Air 08/09/24 17:25 Temperature 98.1 F 08/09/24 17:25 Pulse Rate 74 08/09/24 17:25 Respiratory Rate 18 08/09/24 17:25 Blood Pressure 130/81 08/09/24 17:25 Pulse Oximetry 97 08/09/24 17:25 Oxygen Delivery Method Room Air 08/09/24 17:25 Discharge Plan Discharge Clinical Impression: Laceration of scalp Qualifiers: Encounter type: initial encounter Qualified Code(s): S01.01XA - Laceration without foreign body of scalp, initial encounter Patient Disposition: Home, Self-Care Condition: Stable Instructions: Laceration (ED) Additional Instructions: need clinic follow-up or evaluation in about 1 weeks time to assess the wound for suture removal. May shower but be careful combing hair, do not want to disrupt sutures. Scalp is very vascular and is not likely to become infected but if you have concerns, please seek re-evaluation. Can put ice pack on the area tonight to help decrease pain or swelling. Fine to use Tylenol and ibuprofen alternating for pain control, follow bottle directions for dosing. Activity Level: No Restrictions Prescriptions: No Action levothyroxine 112 mcg tablet 112 mcg PO DAILY ibuprofen 600 mg tablet 600 mg PO PRN terbinafine HCl 250 mg tablet 250 mg PO DAILY lisinopril 10 mg tablet 10 mg PO QDAY Qty: 90 3RF Follow Up/Referrals: Renetta Caputo PA-C [Primary Care Provider] - Stand Alone Forms: [facility] Info Instructions Procedures Laceration Laceration 1: Pre procedure diagnosis: scalp laceration Post procedure diagnosis: same Site marking: not applicable Verification/time out: correct patient, correct site and correct procedure Name of person performing procedure: Camilla Manuel Site: scalp Size (cm): 2 Description: linear Depth: simple, single layer Local Anesthetic: bupivacaine 0.25% Amount of anesthesia used (mL): 5 Pre-repair: wound explored, irrigated extensively and deep structures intact Skin layer closed with: other ( 3-0 Prolene) Size (cm): 3-0 Number of sutures: 6 Technique: simple, interrupted Wound cleansing: soap ( wound cleanser) Estimated blood loss (if any): none Conclusion: patient tolerated procedure
--- OUTSIDE RECORDS SUMMARY | 2024-08-09 18:32 | XMS_ITS | Encounter Summary ---
Author Organization [employer] Address [address] [place] [address]. [place] [address] Care Team Providers Care Health And Wellness Instructor Name Role Phone Nicolette Meyer MD Primary Care Provider [phone] Nicolette Meyer MD Unavailable [phone] Adriano Garcia MD Unavailable Nicolette Cuba MD Unavailable [phone] Adriano Garcia MD Unavailable Nicolette Cbua MD Unavailable [phone] Encounter Details Date Type Department Care Team (Late st Contact Info) Description 03/12/2016 [facility] Medical Advice [address] [address] Joseline Rolle, PATIENT SERVICES ASSISTANT Social History Tobacco Use Types Packs/Day Years Used Date Smoking Tobacco: Never Smokeless Tobacco: Never Alcohol Use Standard Drinks/Week Comments Yes 0 (1 standard drink = 0.6 oz pur e alcohol) socially Comments No Sex and Gender Information Value Date Recorded Sex Assigned at Not on file 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 Gender Identity Not on file Sexual Orientation Not on file documented as of this encounter Plan of Treatment Not on file documented as of this encounter Visit Diagnoses Not on filedocumented in this encounter Care Teams Health And Wellness Instructor Relationship Specialty Start Date End Date Nicolette Meyer MD PCP - General Family Practice 07/03/15 04/15/22 Nicolette Meyer MD [address] [address] PCP - Assigned PCP 03/01/18 06/09/18 Adriano Garcia MD PCP - Assigned PCP 04/13/17 02/28/18 Nicolette Meyer MD [address] [address] Assigned PCP 03/01/18 10/23/19 Adriano Garcia MD Assigned PCP 10/24/19 03/04/20 Nicolette Meyer MD [address] [address] Assigned PCP 03/05/20 01/20/21 documented as of this encounter
--- OUTSIDE RECORDS SUMMARY | 2024-08-09 18:32 | XMS_ITS | Clinical Summary ---
Author Organization [facility] Address [address] [address] Care Team Providers Care Preload Supervisor Name Role Phone Nicolette Meyer DO Primary Care Provider Unav ailable Source Comments You are receiving this document as you are listed as the primary care provider,follow-up provider, or the patient has been referred to you for consultation.This is in compliance with the Medicare andSelect [facility] EHR Incentive Program,which states Providers who transition their patient to another setting of careor provider of care or refers their patient to another provider of care shouldprovide summary care record for each transition of care or referral. [facility] Allergies No known active allergies Medications cetirizine [...] Active MAGNESIUM OR Take by mouth. 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 Not on file Not on file Last Filed Vital Signs Vital Sign Reading Time Taken Comments Blood Pressure 130/81 03/05/2017 9:36 AM WASTE RECYCLER Pulse 61 03/05/2017 9:36 AM WASTE RECYCLER Temperature 37 C (98.6 F) 03/05/2017 9:36 AM WASTE RECYCLER Respiratory Rate 18 03/05/2017 9:36 AM WASTE RECYCLER Oxygen Saturation 100% 03/05/2017 9:36 AM WASTE RECYCLER Inhaled Oxygen Concentration - - Weight 71.7 kg (158 lb) 03/05/2017 9:36 AM WASTE RECYCLER Height 157.5 cm (5' 2) 03/05/2017 9:36 AM WASTE RECYCLER Body Mass Index 28.9 03/05/2017 9:36 AM WASTE RECYCLER Plan of Treatment Health Maintenance Due Date [...] LDL (IF NEEDED) Routine 04/08/2014 8:54 AM WASTE RECYCLER Screening for lipoid disorders from Last 3 [...] AND DIRECT LDL(IF NEEDED) (04/08/2014 8:54 AM WASTE RECYCLER) Hours Fasting 12 hours [facility] Cholesterol 123 0 - 199 mg/dl [facility] Triglyceride 82 0 - 149 mg/dl [facility] HDL 36(L) >40 mg/dl [facility] LDL, Calc. 71 0 - 129 mg/dl [facility] Non HDL Chol, Calc 87 mg/dl [facility] 04/08/2014 8:54 AM WASTE RECYCLER 04/08/2014 9:04 AM WASTE RECYCLER Narrative [facility] - 04/08/2014 5:02 PM WASTE RECYCLER Performed at [facility], [address] [place] [address] us Juliane Nicole APRN, [facility]_1 Final Result [facility] [phone] from Last 3 Months or Most Recently Relevant to Health Maintenance Insurance FULLY INSURED FULLY INSURED COMM FULLY INSURED DENTAL Advance Directives * Full Code (Latest Code Status on File) Date Activated Date Inactivated Comments 03/05/2017 11:26 AM 03/05/2017 2:24 PM Care Teams Preload Supervisor Relationship Specialty Start Date End Date Nicolette Meyer DO PCP - General 03/05/17
--- OUTSIDE RECORDS SUMMARY | 2024-08-09 18:32 | XMS_ITS | Encounter Summary ---
Author Organization [employer] Address [address] [place] [address]. [place] [address] Care Team Providers Care High School Band Teacher Name Role Phone Timothy English MD Primary Care Provider [phone] Nicolette Meyer MD Primary Care Provider [phone] Nicolette Meyer MD Unavailable [phone] Adriano Garcia MD Unavailable Nicolette Cuba MD Unavailable [phone] Adriano Garcia MD Unavailable Nicolette Cuba MD Unavailable [phone] Encounter Details Date Type Department Care Team (Late st Contact Info) Description 03/09/2012 [facility] [address] [address] [facility] Social History Tobacco Use Types Packs/Day Years Used Date Smoking Tobacco: Never Smokeless Tobacco: Never Alcohol Use Standard Drinks/Week Comments Yes 10 (1 standard drink = 0.6 oz pu re alcohol) socially Comments No Sex and Gender Information Value Date Recorded Sex Assigned at Not on file 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 Gender Identity Not on file Sexual Orientation Not on file documented as of this encounter Plan of Treatment Not on file documented as of this encounter Visit Diagnoses Not on filedocumented in this encounter Care Teams High School Band Teacher Relationship Specialty [place] [address] [place] [address] PCP - General 07/06/03 07/02/15 [place] [address] [place] [address] PCP - General Family Practice 07/03/15 04/15/22 Nicolette Meyer MD [address] [address] PCP - Assigned PCP 03/01/18 06/09/18 Adriano Garcia MD PCP - Assigned PCP 04/13/17 02/28/18 Nicolette Meyer MD [address] [address] Assigned PCP 03/01/18 10/23/19 Adriano Garcia MD Assigned PCP 10/24/19 03/04/20 Nicolette Meyer MD [address] [address] Assigned PCP 03/05/20 01/20/21 documented as of this encounter
--- OUTSIDE RECORDS SUMMARY | 2024-08-09 18:32 | XMS_ITS | Encounter Summary ---
Author Organization [employer] Address [address] [place] [address]. [place] [address] Care Team Providers Care Embossing Toolsetter Name Role Phone Nicolette Meyer MD Primary Care Provider [phone] Nicolette Meyer MD Unavailable [phone] Adriano Garcia MD Unavailable Nicolette Cuba MD Unavailable [phone] Adriano Garcia MD Unavailable Nicolette Cuba MD Unavailable [phone] Encounter Details Date Type Department Care Team (Late st Contact Info) Description 10/29/2017 [facility] Medical Advice [address] [id number] Shaneka Rodgers Social History Tobacco Use Types Packs/Day Years Used Date Smoking Tobacco: Never Smokeless Tobacco: Never Alcohol Use Standard Drinks/Week Comments Yes 0 (1 standard drink = 0.6 oz pur e alcohol) socially Comments No Sex and Gender Information Value Date Recorded Sex Assigned at Not on file 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 Gender Identity Not on file Sexual Orientation Not on file documented as of this encounter Plan of Treatment Not on file documented as of this encounter Visit Diagnoses Not on filedocumented in this encounter Care Teams Embossing Toolsetter Relationship Specialty Start Date End Date Nicolette Meyer MD PCP - General Family Practice 07/03/15 04/15/22 Nicolette Meyer MD [address] [address] PCP - Assigned PCP 03/01/18 06/09/18 Adriano Garcia MD PCP - Assigned PCP 04/13/17 02/28/18 Nicolette Meyer MD [address] [address] Assigned PCP 03/01/18 10/23/19 Adriano Garcia MD Assigned PCP 10/24/19 03/04/20 Nicolette Meyer MD [address] [address] Assigned PCP 03/05/20 01/20/21 documented as of this encounter
--- OUTSIDE RECORDS SUMMARY | 2024-08-09 18:32 | XMS_ITS | Encounter Summary ---
Author Organization [employer] Address [address] [place] [address] Care Team Providers Care Ferryboat Captain Name Role Phone Nicolette Meyer DO Primary [...] on filedocumented in this encounter Care Teams Ferryboat Captain Relationship Specialty Start Date End Date Nicolette Meyer DO PCP - General 03/05/17 documented as of this encounter
--- OUTSIDE RECORDS SUMMARY | 2024-08-09 18:33 | XMS_ITS | Encounter Summary ---
Author Organization [employer] [facility] Address [address] [place] [address] Care Team Providers Care Maintenance Trainer Name Role Phone Nicolette Meyer DO Primary [...] on filedocumented in this encounter Care Teams Maintenance Trainer Relationship Specialty Start Date End Date Nicolette Meyer DO PCP - General 03/05/17 documented as of this encounter
--- OUTSIDE RECORDS SUMMARY | 2024-08-09 18:33 | XMS_ITS | Encounter Summary ---
Author Organization [employer] Address [address] [place] [address] Care Team Providers Care Communications Professor Name Role Phone Nicolette Meyer DO Primary [...] on filedocumented in this encounter Care Teams Communications Professor Relationship Specialty Start Date End Date Nicolette Meyer DO PCP - General 03/05/17 documented as of this encounter
--- OUTSIDE RECORDS SUMMARY | 2024-08-09 18:33 | XMS_ITS | Encounter Summary ---
Author Organization [employer] Address [address] [place] [address] Care Team Providers Care Assurance Services Manager Health Care Name Role Phone Nicolette Meyer DO Primary [...] on filedocumented in this encounter Care Teams Assurance Services Manager Health Care Relationship Specialty Start Date End Date Nicolette Meyer DO PCP - General 03/05/17 documented as of this encounter
--- OUTSIDE RECORDS SUMMARY | 2024-08-09 18:33 | XMS_ITS | Encounter Summary ---
Author Organization [employer] Address [address] [place] [address] Care Team Providers Care Beveller Operator Name Role Phone Nicolette Meyer DO [...] on filedocumented in this encounter Care Teams Beveller Operator Relationship Specialty Start Date End Date Nicolette Meyer DO PCP - General 03/05/17 documented as of this encounter
--- OUTSIDE RECORDS SUMMARY | 2024-08-09 18:33 | XMS_ITS | Encounter Summary ---
Author Organization [employer] Address [address] [place] [address] Care Team Providers Care Supervisor [employer] Parts Former Name Role Phone Nicolette Meyer DO Primary Care Provider Unav ailable Encounter Details Date Type Department Care Team (Latest Contact Info) Description 01/31/1998 Orders Only Angie Tiexeira MD Social History Tobacco Use Types Packs/Day [...] on filedocumented in this encounter Care Teams Supervisor [employer] Parts Former Relationship Specialty Start Date End Date Nicolette Meyer DO PCP - General 03/05/17 documented as of this encounter
--- OUTSIDE RECORDS SUMMARY | 2024-08-09 18:33 | XMS_ITS | Clinical Summary ---
Author Organization [facility] Address [address] [place] [address]. [place] [address] Care Team Providers Care Clerk Name Role Phone Unavailable Primary Care Provider [...] on file Legal Sex Female 3:22 AM DIESEL ENGINE ERECTOR Gender Identity Not on file Sexual Orientation Not on file Last Filed Vital Signs Vital Sign Reading Time Taken Comments Blood Pressure 108/62 04/01/2018 3:24 PM DIESEL ENGINE ERECTOR Pulse 72 04/01/2018 3:24 PM DIESEL ENGINE ERECTOR Temperature 36.9 C (98.4 F) 04/01/2018 3:24 PM DIESEL ENGINE ERECTOR Respiratory Rate 16 04/01/2018 3:24 PM DIESEL ENGINE ERECTOR Oxygen Saturation 98% 04/01/2018 3:24 PM DIESEL ENGINE ERECTOR Inhaled Oxygen Concentration - - Weight 72.1 kg (159 lb) 04/01/2018 3:24 PM DIESEL ENGINE ERECTOR Height 157.5 cm (5' 2) 01/19/2018 3:17 PM CDT Body Mass Index 29.08 01/19/2018 3:17 PM CDT Plan of Treatment Not on file Advance Directives For more information, please contact: [phone] * Full Code (Latest Code Status on File) Date Activated Date Inactivated Comments 01/09/2016 12:27 PM 01/10/2016 3:39 PM
--- OUTSIDE RECORDS SUMMARY | 2024-08-09 18:33 | XMS_ITS | Encounter Summary ---
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
--- OUTSIDE RECORDS SUMMARY | 2024-08-09 18:33 | XMS_ITS | Encounter Summary ---
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
--- OUTSIDE RECORDS SUMMARY | 2024-08-09 18:33 | XMS_ITS | Encounter Summary ---
Author Organization [employer] Address [address] [place] [address] Care Team Providers Care Jira Administrator Name Role Phone Nicolette Meyer DO Primary [...] on filedocumented in this encounter Care Teams Jira Administrator Relationship Specialty Start Date End Date Nicolette Meyer DO PCP - General 03/05/17 documented as of this encounter
--- OUTSIDE RECORDS SUMMARY | 2024-08-09 18:33 | XMS_ITS | Encounter Summary ---
Author Organization [employer] Address [address] [place] [address] Care Team Providers Care Sharepoint Solutions Developer Name Role Phone Nicolette Meyer DO Primary [...] on filedocumented in this encounter Care Teams Sharepoint Solutions Developer Relationship Specialty Start Date End Date Nicolette Meyer DO PCP - General 03/05/17 documented as of this encounter
--- OUTSIDE RECORDS SUMMARY | 2024-08-09 18:33 | XMS_ITS | Encounter Summary ---
Author Organization [employer] Address [address] [place] [address] Care Team Providers Care Reinforcing Iron And Rebar Workers Name Role Phone Nicolette Meyer DO Primary [...] on filedocumented in this encounter Care Teams Reinforcing Iron And Rebar Workers Relationship Specialty Start Date End Date Nicolette Meyer DO PCP - General 03/05/17 documented as of this encounter
--- OUTSIDE RECORDS SUMMARY | 2024-08-09 18:33 | XMS_ITS | Encounter Summary ---
Author Organization [employer] Address [address] [place] [address] Care Team Providers Care Water Resource Project Manager Name Role Phone Nicolette Meyer DO [...] on filedocumented in this encounter Care Teams Water Resource Project Manager Relationship Specialty Start Date End Date Nicolette Meyer DO PCP - General 03/05/17 documented as of this encounter
== END 2024-08-09 18:44 | disposition home or self-care (01) ==
PROVIDERS: Emergency Provider Family Medicine; PCP Physician Assistant Medical
DX: S01.01XA Laceration without foreign body of scalp, initial encounter (principal); W26.9XXA Contact with unspecified sharp object(s), initial encounter
CPT/HCPCS: 12032; 99283

== ENCOUNTER 2024-11-23 07:25 | Outpatient (CLI) | payer BC, SELFPAY ==
[2024-11-23 14:27] LABS: Free T4 Free Thyroxine* 1.48 ng/dL (0.70-1.85)
== END 2024-11-23 07:26 | disposition home or self-care (01) ==
LOC: NPINS 07:25
PROVIDERS: PCP Physician Assistant Medical; Visit Provider Specialist
DX: R73.03 Prediabetes (principal); E89.0 Postprocedural hypothyroidism
CPT/HCPCS: 83036; 84439; 84443

== ENCOUNTER 2025-01-20 08:42 | Outpatient (CLI) | payer BC, SELFPAY | END 2025-01-20 08:43 | disposition home or self-care (01) | LOC: NFLDREF 01-25 15:09 | PROVIDERS: PCP Physician Assistant Medical; Referring Provider Physician Assistant Medical; Visit Provider Physician Assistant Medical | DX: I10 Essential (primary) hypertension (principal); E78.2 Mixed hyperlipidemia | CPT/HCPCS: 80053; 80061 ==

== ENCOUNTER 2025-03-02 15:03 | Outpatient (CLI) | payer BC, SELFPAY ==
--- NOTE | 2025-03-02 15:20 | CRLHL7_ITS ---
For Patients: As a result of the Century Cures Act, medical imaging exams and procedure reports are released immediately into your electronic medical record. You may view this report before your referring provider. If you have questions, please contact your health care provider. INDICATION: BILATERAL SCREENING MAMMOGRAM, ASYMPTOMATIC 59 Y/O FEMALE COMPARISON: 02/27/2024, 11/06/2022, 10/17/2021 TECHNIQUE: Digital mammogram in CC and MLO projections including computer-aided detection (CAD) and tomosynthesis. BREAST COMPOSITION: There are scattered areas of fibroglandular density. FINDINGS: No suspicious findings. ASSESSMENT: BI-RADS 1 Negative RECOMMENDATION: Annual screening mammogram. A lay language report of this examination will be provided to the patient. Dictated by: Meryl Chino MD @ 03/04/2025 13:29:06 (Electronically Signed)
== END 2025-03-02 15:04 | disposition home or self-care (01) ==
LOC: MAMMO 15:04
PROVIDERS: PCP Physician Assistant Medical; Visit Provider Physician Assistant Medical
DX: Z12.31 Encounter for screening mammogram for malignant neoplasm of breast (principal)
CPT/HCPCS: 77063; 77067